=== PATIENT | female | born 1975 | race Caucasian/White ===

== ENCOUNTER 2018-12-25 04:35 | Inpatient (IN) | payer MEDICAID ==
[2018-12-25] MEDS ORDERED: Albuterol/Ipratropium 3.0-0.5 MG/3 ML Neb Soln NEB ONE (04:42)
[2018-12-25] MEDS ORDERED: LORazepam 2 MG/ML SDV IVPUSH ONE ×2 (04:43→06:46)
[2018-12-25] MEDS ORDERED: Promethazine 25 MG in Sodium Chloride 0.9% 50 ML IV ONE (04:43)
[2018-12-25] MEDS: Dextrose 5%-0.9% NaCl 1,000 ML IV SCH ×2 (04:54→10:48)
--- NOTE | 2018-12-25 04:54 | EDM.PDOC ---
ED HPI GENERAL MEDICAL PROBLEM - General Chief Complaint: Respiratory Problem Stated Complaint: [facility] Time Seen by Provider: 12/25/18 04:46 Source of Information: Reports: EMS History Limitations: Reports: Altered Mental Status, Respiratory Distress ( Patient presents with severe respiratory distress. O2 sats 85-89% on room air.) , Other (She is not able to speak more than 1 or 2 word sentences due to respiratory distress. He is agitated and almost exhibiting choreoathetoid movements of her upper extremities. He is cachectic in appearance and by history apparently has relapsed with use of methamphetamines. She has been picking at her skin particularly mid forehead with wounds that appear to be at least a week or more old.) - History of Present Illness INITIAL COMMENTS - FREE TEXT/NARRATIVE: 43-year-old female brought to the ED by [facility].. Apparently the patient summoned the paramedics and the police attended as well. Apparently the please attend her residence quite often due to problems related to chronic methamphetamine abuse. Apparently she has recently relapsed into recurrent methamphetamine use. She appears cachectic and unkept with obvious picking of her skin in multiple areas around her face and forehead and upper arms. She uses methamphetamine intravenously. She states that she his alpha-1 antitrypsin deficiency and severe COPD with wheezing. He is on multiple inhalers. Per medics gave her albuterol treatment en route to the hospital which seemed to help somewhat and also the use of CPAP machine en route to the hospital which helped her breathing. Apparently patient is on oxygen 1 L per nasal cannula on a when necessary basis. Onset: Unknown/Unsure Duration: Chronic (Chronic COPD with wheezing.), Other (History of chronic methamphetamine abuse.) Location: Reports: Chest (Dyspnea.) Quality: Reports: Other Severity: Moderate (Shortness of breath dyspnea and cough.) Improves with: Reports: Other Worsens with: Reports: Movement Context: Reports: Other (Acute exacerbation of COPD). Denies: Activity, Exercise, Lifting, Sick Contact, Trauma Associated Symptoms: Reports: Confusion, Chest Pain, Cough, Loss of Appetite, Rash (From coughing), Shortness of Breath. Denies: cough w sputum, Diaphoresis , Fever/Chills, Headaches, Nausea/Vomiting ( from picking), Seizure, Syncope, Weakness Treatments EXHIBITS COORDINATOR: Reports: Other (see below) (Only albuterolthat the paramedics gave.) Generalized Pain Score (Numeric/FACES): 10 - Related Data Allergies Allergy/AdvReac Type Severity Reaction Status Date / Time No Known Allergies Allergy Verified 12/25/18 04:47 Home Meds: Home Meds Budesonide/Formoterol Fumarate [Symbicort 160-4.5 Mcg Inhaler] 2 puff INH BID [History] hydrOXYzine HCl [Atarax] 25 mg PO BID 09/21/17 [History] Albuterol Sulfate [Proair Hfa] 2 puff INH QID PRN 12/25/18 [History] Doxycycline Monohydrate 100 mg PO BID 12/25/18 [History] Ipratropium/Albuterol Sulfate [Iprat-Albut 0.5-3(2.5) mg/3 ml] 1 vial INH Q4H PRN 12/25/18 [History] Tiotropium [Spiriva HandiHaler] 1 cap INH DAILY 12/25/18 [History] Venlafaxine HCl [Venlafaxine ER] 75 mg PO DAILY 12/25/18 [History] hydrOXYzine pamoate [Hydroxyzine Pamoate] 50 mg PO Q6H PRN 12/25/18 [History] Past Medical History - Past Health History Medical/Surgical History: Denies Medical/Surgical History HEENT History: Reports: None Cardiovascular History: Reports: None Respiratory History: Reports: Asthma, COPD, Other (See Below) Other Respiratory History: Emphysema Gastrointestinal History: Reports: None Genitourinary History: Reports: None BUSINESS SYSTEMS ADVISOR History: Reports: None Musculoskeletal History: Reports: Fibromyalgia Neurological History: Reports: Concussion Psychiatric History: Reports: ADHD, Anxiety, Depression Endocrine/Metabolic History: Reports: None Hematologic History: Reports: Other (See Below) Other Hematologic History: Alpha 1 gene deficiency, diagnosed one year ago. Immunologic History: Reports: None Oncologic (Cancer) History: Reports: None Dermatologic History: Reports: None - Infectious Disease History Infectious Disease History: Reports: Chicken Pox, MRSA - Past Surgical History Head Surgeries/Procedures: Reports: None HEENT Surgical History: Reports: Oral Surgery GI Surgical History: Reports: Appendectomy Endocrine Surgical History: Reports: None Neurological Surgical History: Reports: None Musculoskeletal Surgical History: Reports: None Dermatological Surgical History: Reports: None Social & Family History - Family History Family Medical History: Noncontributory Respiratory: Reports: Asthma, COPD Other Respiratory Family Hisory: parents - Caffeine Use Caffeine Use: Reports: Coffee, Soda - Living Situation & Occupation Living situation: Reports: Single Occupation: Unemployed ED ROS GENERAL - Review of Systems Review Of Systems: See Below Constitutional: Reports: Fatigue, Decreased Appetite, Weight Loss. Denies: Fever, Chills, Malaise, Weakness HEENT: Reports: No Symptoms Respiratory: Reports: Shortness of Breath, Wheezing, Cough. Denies: Pleuritic Chest Pain, Sputum, Hemoptysis, Other Cardiovascular: Reports: Chest Pain, Dyspnea on Exertion (From coughing so much on a). Denies: No Symptoms, Blood Pressure Problem, Claudication, Edema, Lightheadedness, Orthopnea Endocrine: Reports: Fatigue GI/Abdominal: Reports: Decreased Appetite : Reports: No Symptoms Musculoskeletal: Reports: Back Pain Skin: Reports: Dryness Neurological: Reports: Difficulty Walking Psychiatric: Reports: Agitation, Anxiety, Mood Lability Hematologic/Lymphatic: Reports: No Symptoms Immunologic: Reports: No Symptoms ED EXAM, GENERAL - Physical Exam Exam: See Below Exam Limited By: Respiratory Distress (Severe respiratory distress. Talking only 1-2 word sentences.) General Appearance: Alert, Anxious, Severe Distress, Other (Appears to be intoxicated with exaggerated movements of her limbs.) Eye Exam: Bilateral Eye: Normal Inspection, PERRL Throat/Mouth: Other (Views oropharyngeal erythema with slight swelling of the uvula compatible with recurrent coughing and gagging. Tongue is dry and coated) Head: Atraumatic, Normocephalic, Facial Tenderness (She has been picking at her face chin and particularly lesion mid forehead compatible with chronic methamphetamine abuse.), Other (Marcos signs of head trauma.) Neck: Normal Inspection, Supple, Non-Tender, Full Range of Motion. No: Lymphadenopathy (L), Lymphadenopathy (R) Respiratory/Chest: Respiratory Distress, Wheezing (Severe respiratory distress speaking only in 1-2 word sentences. Diffuse wheezing throughout all lung ch.). No: Lungs Clear, Normal Breath Sounds Cardiovascular: Normal Peripheral Pulses, Regular Rate, Rhythm, No Edema, No Murmur, No Rub, Tachycardia (Tachycardia 1 12/m at rest.) Peripheral Pulses: 3+: Posterior Tibial (L), Posterior Tibial (R), Dorsalis Pedis (L), Dorsalis Pedis (R) GI/Abdominal: Normal Bowel Sounds, Soft, Non-Tender, No Organomegaly, Distended (Slightly tympanitic to percussion distended upper abdomen compound some degree of aerophagia.) Back Exam: Full Range of Motion, Other ([place] in appearance with all ribs and spinous processes easily visible.). No: CVA Tenderness (L), CVA Tenderness (R) Extremities: Other (She has evidence of needle sticks in both antecubital fossa is compatible with IV drug use.) Neurological: Alert Psychiatric: Anxious (Severely anxious and somewhat agitated.) Skin Exam: Warm, Dry, Intact, Normal Color, Rash (He has a rash forehead face Chin upper extremities from "picking"), Other EKG INTERPRETATION EKG Date: 12/25/18 Time: 04:54 Rhythm: NSR Rate (Beats/Min): 88 [place]: Normal P-Wave: Enlarged (Right atrial hypertrophy.) QRS: Other (Decreased voltage limb and precordial leads. Q waves V1 and V2 consider old anteroseptal myocardial infarction. Q waves in aVL nonspecific) ST-T: Other (T-wave flattening one in aVL and V6 nonspecific findings) QT: Normal EKG Interpretation Comments: Abnormal ECG Course - Vital Signs Last Recorded V/S: Last Vital Signs Temp 37.0 C 12/25/18 14:48 Pulse 81 12/25/18 14:48 Resp 16 12/25/18 14:48 BP 128/79 12/25/18 14:48 Pulse Ox 95 12/25/18 18:00 - Orders/Labs/Meds Orders: Active Orders 24 hr Category Date Time Status Oxygen Therapy [RC] ASDIRECTED Care 12/25/18 04:46 Active Medication Orders Acetaminophen (Tylenol) 650 mg PO Q4H PRN PRN Reason: Pain (Mild 1-3)/fever Albuterol (Proventil Neb Soln) 2.5 mg NEB Q4HRRT PRN PRN Reason: Dyspnea Albuterol/Ipratropium (Duoneb 3.0-0.5 Mg/3 Ml) 3 ml NEB QIDRT RICHARD Bacitracin (Bacitracin Oint) 0 gm TOP TID RICHARD Last Admin: 12/25/18 15:41 Dose: 1 applic Bisacodyl (Dulcolax) 5 mg PO DAILY PRN PRN Reason: Constipation Diphenhydramine HCl (Benadryl) 25 mg PO Q4H PRN PRN Reason: Itching Docusate Sodium (Colace) 100 mg PO BID PRN PRN Reason: Constipation Enoxaparin Sodium (Lovenox) 40 mg SUBCUT DAILY [facility] Last Admin: 12/25/18 17:18 Dose: 40 mg Lactated Ringer's (Ringers, Lactated) 1,000 mls @ 125 mls/hr IV ASDIRECTED [facility] Last Admin: 12/25/18 14:51 Dose: 125 mls/hr Lorazepam (Ativan) 1 mg IV Q6H PRN PRN Reason: Anxiety Methylprednisolone Sodium Succinate (Solu-Medrol) 40 mg IVPUSH Q6H [facility] Last Admin: 12/25/18 15:41 Dose: 40 mg Admin: 12/25/18 10:27 Dose: 40 mg Ondansetron HCl (Zofran Odt) 4 mg PO Q6H PRN PRN Reason: nausea, able to take PO Vancomycin HCl (Pharmacy To Dose - Vancomycin) 1 dose .XX ASDIRECTED [facility] Venlafaxine HCl (Effexor Xr) 75 mg PO DAILY [facility] Last Admin: 12/25/18 10:26 Dose: 75 mg Labs: Laboratory Tests 12/25/18 12/25/18 12/25/18 Range/Units 05:19 05:19 05:19 WBC 6.60 (3.98-10.04) K/mm3 RBC 4.47 (3.98-5.22) M/mm3 Hgb 13.5 (11.2-15.7) gm/L Hct 40.1 (34.1-44.9) % MCV 89.7 (79.4-94.8) fl MCH 30.2 (25.6-32.2) pg MCHC 33.7 (32.2-35.5) g/dl RDW Std Deviation 43.7 (36.4-46.3) fL Plt Count 351 (182-369) K/mm3 MPV 8.2 L (9.4-12.3) fl Neutrophils % (Manual) 57 (40-60) % Band Neutrophils % 0 (0-10) % Lymphocytes % (Manual) 29 (20-40) % Atypical Lymphs % 0 % Monocytes % (Manual) 12 H (2-10) % Eosinophils % (Manual) 2 (0.7-5.8) % Basophils % (Manual) 0 L (0.1-1.2) Platelet Estimate Adequate RBC Morph Comment Normal Puncture Site ABG pH (7.35-7.45) ABG pCO2 (35.0-45.0) mmHg ABG pO2 (80.0-100.0) mmHg ABG HCO3 (22.0-26.0) meq/L ABG O2 Saturation (96.0-97.0) % ABG Base Excess (-2-2.0) Ruiz Test A-a Gradient mmHg O2 Delivery Device Oxygen Flow Rate Sodium 137 (136-145) mEq/L Potassium 3.5 (3.5-5.1) mEq/L Chloride 101 (98-107) mEq/L Carbon Dioxide 24 (21-32) mEq/L Anion Gap 15.5 H (5-15) BUN 12 (7-18) mg/dL Creatinine 0.7 (0.55-1.02) mg/dL Est Cr Clr Drug Dosing 86.60 mL/min Estimated GFR (MDRD) > 60 (>60) mL/min BUN/Creatinine Ratio 17.1 (14-18) Glucose 118 H (74-106) mg/dL Calcium 8.6 (8.5-10.1) mg/dL Magnesium 1.9 (1.8-2.4) mg/dl Total Bilirubin 0.5 (0.2-1.0) mg/dL AST 34 (15-37) U/L ALT 80 H (14-59) U/L Alkaline Phosphatase 90 (46-116) U/L Creatine Kinase (26-192) U/L CK-MB (CK-2) 7.8 H (0-3.6) ng/ml Troponin I < 0.017 (0.00-0.056) ng/mL C-Reactive Protein 1.8 H* (<1.0) mg/dL NT-Pro-B Natriuret Pep 53 (0-125) pg/mL Total Protein 6.9 (6.4-8.2) g/dl Albumin 3.8 (3.4-5.0) g/dl Globulin 3.1 gm/dL Albumin/Globulin Ratio 1.2 (1-2) HCG, Qual Negative (NEGATIVE) Ethyl Alcohol (0.00) gm% Hepatitis C Antibody (NEGATIVE) HIV-1 Ab Rapid Screen (NEGATIVE) 12/25/18 12/25/18 12/25/18 Range/Units 05:19 05:19 05:20 WBC (3.98-10.04) K/mm3 RBC (3.98-5.22) M/mm3 Hgb (11.2-15.7) gm/L Hct (34.1-44.9) % MCV (79.4-94.8) fl MCH (25.6-32.2) pg MCHC (32.2-35.5) g/dl RDW Std Deviation (36.4-46.3) fL Plt Count (182-369) K/mm3 MPV (9.4-12.3) fl Neutrophils % (Manual) (40-60) % Band Neutrophils % (0-10) % Lymphocytes % (Manual) (20-40) % Atypical Lymphs % % Monocytes % (Manual) (2-10) % Eosinophils % (Manual) (0.7-5.8) % Basophils % (Manual) (0.1-1.2) Platelet Estimate RBC Morph Comment Puncture Site Lt radial ABG pH 7.34 L (7.35-7.45) ABG pCO2 44.5 (35.0-45.0) mmHg ABG pO2 68.0 L (80.0-100.0) mmHg ABG HCO3 23.1 (22.0-26.0) meq/L ABG O2 Saturation 92.0 L (96.0-97.0) % ABG Base Excess -2.3 L (-2-2.0) Ruiz Test Positive A-a Gradient 81 mmHg O2 Delivery Device Nasal cannula Oxygen Flow Rate 3.0 Sodium (136-145) mEq/L Potassium (3.5-5.1) mEq/L Chloride (98-107) mEq/L Carbon Dioxide (21-32) mEq/L Anion Gap (5-15) BUN (7-18) mg/dL Creatinine (0.55-1.02) mg/dL Est Cr Clr Drug Dosing mL/min Estimated GFR (MDRD) (>60) mL/min BUN/Creatinine Ratio (14-18) Glucose (74-106) mg/dL Calcium (8.5-10.1) mg/dL Magnesium (1.8-2.4) mg/dl Total Bilirubin (0.2-1.0) mg/dL AST (15-37) U/L ALT (14-59) U/L Alkaline Phosphatase (46-116) U/L Creatine Kinase 154 (26-192) U/L CK-MB (CK-2) (0-3.6) ng/ml Troponin I (0.00-0.056) ng/mL C-Reactive Protein (<1.0) mg/dL NT-Pro-B Natriuret Pep (0-125) pg/mL Total Protein (6.4-8.2) g/dl Albumin (3.4-5.0) g/dl Globulin gm/dL Albumin/Globulin Ratio (1-2) HCG, Qual (NEGATIVE) Ethyl Alcohol 0.00 (0.00) gm% Hepatitis C Antibody Positive H (NEGATIVE) HIV-1 Ab Rapid Screen Negative (NEGATIVE) Meds: Medications Generic Name Dose Route Start Last Admin Trade Name Freq PRN Reason Stop Dose Admin Acetaminophen 650 mg 12/25/18 09:31 Tylenol PO Q4H PRN Pain (Mild 1-3)/fever Albuterol 2.5 mg 12/25/18 09:23 Proventil Neb Soln NEB Q4HRRT PRN Dyspnea Albuterol/Ipratropium 3 ml 12/25/18 21:00 Duoneb 3.0-0.5 Mg/3 Ml NEB QIDRT RICHARD Bacitracin 0 gm 12/25/18 15:00 12/25/18 15:41 Bacitracin Oint TOP 1 applic TID RICHARD Administration Bisacodyl 5 mg 12/25/18 09:31 Dulcolax PO DAILY PRN Constipation Diphenhydramine HCl 25 mg 12/25/18 09:40 Benadryl PO Q4H PRN Itching Docusate Sodium 100 mg 12/25/18 09:31 Colace PO BID PRN Constipation Enoxaparin Sodium 40 mg 12/25/18 16:30 12/25/18 17:18 Lovenox SUBCUT 40 mg DAILY RICHARD Administration Lactated Ringer's 1,000 mls @ 125 mls/hr 12/25/18 12:50 12/25/18 14:51 Ringers, Lactated IV 125 mls/hr ASDIRECTED RICHARD Administration Lorazepam 1 mg 12/25/18 09:31 Ativan IV Q6H PRN Anxiety Methylprednisolone Sodium Succinate 40 mg 12/25/18 09:30 12/25/18 15:41 Solu-Medrol IVPUSH 40 mg Q6H RICHARD Administration Ondansetron HCl 4 mg 12/25/18 09:31 Zofran Odt PO Q6H PRN nausea, able to take PO Vancomycin HCl 1 dose 12/25/18 19:00 Pharmacy To Dose - Vancomycin .XX ASDIRECTED RICHARD Venlafaxine HCl 75 mg 12/25/18 09:00 12/25/18 10:26 Effexor Xr PO 75 mg DAILY RICHARD Administration Discontinued Medications Generic Name Dose Route Start Last Admin Trade Name Freq PRN Reason Stop Dose Admin Albuterol/Ipratropium 3 ml 12/25/18 04:42 12/25/18 04:58 Duoneb 3.0-0.5 Mg/3 Ml NEB 12/25/18 04:43 3 ml ONETIME ONE Administration Albuterol/Ipratropium 3 ml 12/25/18 10:00 Duoneb 3.0-0.5 Mg/3 Ml NEB Q4HRRT RICHARD Albuterol/Ipratropium 3 ml 12/25/18 09:40 12/25/18 18:00 Duoneb 3.0-0.5 Mg/3 Ml NEB 3 ml Q4HRRT RICHARD Administration Dextrose/Sodium Chloride 1,000 mls @ 250 mls/hr 12/25/18 04:45 12/25/18 10:48 Dextrose 5%-Normal Saline IV 12/25/18 12:45 250 mls/hr ASDIRECTED RICHARD Administration Promethazine HCl 25 mg/ Sodium 51 mls @ 100 mls/hr 12/25/18 04:43 12/25/18 05 :11 Chloride IV 12/25/18 05:13 100 mls/hr ONETIME ONE Administration Lorazepam 1 mg 12/25/18 04:43 12/25/18 04:55 Ativan IVPUSH 12/25/18 04:44 1 mg ONETIME ONE Administration Lorazepam 1 mg 12/25/18 06:46 12/25/18 06:47 Ativan IVPUSH 12/25/18 06:47 1 mg ONETIME ONE Administration Lorazepam Confirm 12/25/18 06:45 12/25/18 06:48 Ativan Administered 12/25/18 06:46 Not Given Dose 2 mg .ROUTE .[facility] - Radiology Interpretation Free Text/Narrative:: 43-year-old female who is known to be a chronic methamphetamine abuser primarily by IV drug use. Presents to the ED per [facility]. She summoned the embolus due to increased shortness of breath and dyspnea. 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 She appears to be moderately intoxicated likely from methamphetamines. Somewhat bizarre choreoathetoid movements of her extremities and rapid speech. He presents in quite significant respiratory distress with wheezing throughout all lung hc and O2 sats of 85% on room air. Son oxygen at 3 L/m by nasal cannula and given DuoNeb immediately. So relieved a good portion of her respiratory distress. So given Ativan 1 mg IV and we'll give her Phenergan 25 mg IV as she continues to dry heave and wretch with coughing. Plan routine labs urine drug screen one view chest x-ray to be done. ECG as well. ABGs as well. - Re-Assessments/Exams Free Text/Narrative Re-Assessment/Exam: 12/25/18 05:15: Audible chest x-ray reveals hyperinflated lung ch with no pneumothorax or pulmonary infiltrates evident. 12/25/18 06:04 Total white count is 6.60 differential pending. Hemoglobin 13.5 with hematocrit of 40.1. Platelet count is 351,000. ABGs revealed a pH of 7.34 with a PCO2 of 44.5 and a PaO2 of 68.0. Bicarbonate was 23.1 saturations 92% this was done on 3 L/m nasal cannula. Sodium 137 potassium of 3.5. Chloride 101 with a bicarbonate of 24. And a gap slightly elevated at 15.5. BUN of 12 with a running of 0.7. GFR is greater than 60. Pulse 118 calcium 8.6 magnesium 1.9. Bilirubin is 0.5 AST is 34 ELT is 80. Alkaline phosphatase is 90. CK-MB is elevated at 7.8 but troponin I is less than 0.017. C-reactive protein is 1.8. Total protein is 6.9. Patient is been able to fall asleep. Heart rate is 90 O2 sats 100% .Blood pressure 102/70. Patient will help further labs ordered with hep C screen. HIV screen due to high risk behaviors with IV drug use. Total CPK will also be ordered. Blood alcohol level as well. 12/25/18 06:17 on reexamination she is sleeping peacefully and has good air entry to anterior lung ch. No wheezing is appreciated at this time and as mentioned sats are 100% on 3 L. 12/25/18 06:33 Differential on the white count is 57% neutrophils and no band cells. Serum hCG was negative blood alcohol was 0.00. C-reactive protein is 1.8 12/25/18 06:47 lesion has aroused and is exhibiting her bizarre choreoathetoid- like movements. Still suspect she may be under the influence of methamphetamines but we have yet to obtain a urinalysis for drug testing. Plan Will repeat Ativan 1 mg IV as this seemed to provide adequate sedation. We'll then catheterized to obtain a urinalysis and urine drug screen. I did speak with Dr. Hayden -application systems administrator hospitalist and he has accepted care of this patient. Plan was to place her in the med surgery floor per observation status treatment of her COPD. I have not given her any steroids at this point time until I can determine exactly what she has in her urinalysis. Patient was HIV negative but hepatitis C positive. Urine drug screen was positive for amphetamine/ methamphetamines. Departure - Departure Time of Disposition: 06:55 Disposition: Refer to Observation Condition: Fair Clinical Impression: Acute exacerbation of chronic obstructive pulmonary disease (COPD), Methamphetamine abuse - Discharge Information *PRESCRIPTION DRUG MONITORING PROGRAM REVIEWED*: Not Applicable *COPY OF PRESCRIPTION DRUG MONITORING REPORT IN PATIENT SHER: Not Applicable - My Orders Last 24 Hours: My Active Orders 12/25/18 04:46 Oxygen Therapy [RC] ASDIRECTED - Assessment/Plan Last 24 Hours: My Active Orders 12/25/18 04:46 Oxygen Therapy [RC] ASDIRECTED
[2018-12-25] MEDS ORDERED: LORazepam 2 MG/ML SDV ONE (06:45)
--- NOTE | 2018-12-25 08:16 | PCM.HP ---
H&P History of Present Illness - General Date of Service: 12/25/18 Admit Problem/Dx: Admission Diagnosis/Problem Admission Diagnosis/Problem COPD, Severe chronic obstructive pulmonary disease Source of Information: Patient, Old Records, Provider, RN Notes Reviewed History Limitations: Reports: Respiratory Distress Generalized Pain Score (Numeric/FACES): 10 - Related Data Allergies/Adverse Reactions: Allergies Allergy/AdvReac Type Severity Reaction Status Date / Time No Known Allergies Allergy Verified 12/25/18 04:47 Home Medications: Home Meds Budesonide/Formoterol Fumarate [Symbicort 160-4.5 Mcg Inhaler] 1 puff INH DAILY 11/18/16 [History] DULoxetine [Cymbalta] 60 mg PO DAILY 11/18/16 [History] Ipratropium/Albuterol Sulfate [Combivent Respimat 20-100 Mcg] 1 unit INH QID PRN 11/18/16 [History] hydrOXYzine HCl [Atarax] 25 mg PO BID 09/21/17 [History] Albuterol Sulfate [Proventil Hfa] 1 puff INH Q4H PRN #1 hfa.aer.[email or web address] 09/23/17 [Rx] Fluticasone/Vilanterol [Breo Ellipta 200-25 Mcg INH] 2 puff INH DAILY 06/28/18 [ History] Past Medical History - Past Health History Medical/Surgical History: Denies Medical/Surgical History HEENT History: Reports: None Cardiovascular History: Reports: None Respiratory History: Reports: Asthma, COPD, Other (See Below) Other Respiratory History: Emphysema Gastrointestinal History: Reports: None Genitourinary History: Reports: None [employer]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 Immunologic History: Reports: None Oncologic (Cancer) History: Reports: None Dermatologic History: Reports: None - Infectious Disease History Infectious Disease History: Reports: Chicken Pox, MRSA - Past Surgical History Head Surgeries/Procedures: Reports: None HEENT Surgical History: Reports: Oral Surgery GI Surgical History: Reports: Appendectomy Endocrine Surgical History: Reports: None Neurological Surgical History: Reports: None Musculoskeletal Surgical History: Reports: None Dermatological Surgical History: Reports: None Social & Family History - Family History Family Medical History: Noncontributory Respiratory: Reports: Asthma, COPD Other Respiratory Family Hisory: parents - Caffeine Use Caffeine Use: Reports: Coffee, Soda - Living Situation & Occupation Living situation: Reports: Single Occupation: Unemployed H&P Review of Systems - Review of Systems: Review Of Systems: See Below Exam - Exam Exam: See Below - Vital Signs Vital Signs: Last Vital Signs Temp 37.1 C 12/25/18 07:15 Pulse 82 12/25/18 07:15 Resp 20 12/25/18 07:15 BP 111/80 12/25/18 07:15 Pulse Ox 97 12/25/18 07:15 Weight: 54.431 kg - Patient Data Lab Results Last 24 hrs: Laboratory Results - last 24 hr 12/25/18 12/25/18 12/25/18 Range/Units 05:19 05:19 05:19 WBC 6.60 (3.98-10.04) K/mm3 RBC 4.47 (3.98-5.22) M/mm3 Hgb 13.5 (11.2-15.7) gm/L Hct 40.1 (34.1-44.9) % MCV 89.7 (79.4-94.8) fl MCH 30.2 (25.6-32.2) pg MCHC 33.7 (32.2-35.5) g/dl RDW Std Deviation 43.7 (36.4-46.3) fL Plt Count 351 (182-369) K/mm3 MPV 8.2 L (9.4-12.3) fl Neutrophils % (Manual) 57 (40-60) % Band Neutrophils % 0 (0-10) % Lymphocytes % (Manual) 29 (20-40) % Atypical Lymphs % 0 % Monocytes % (Manual) 12 H (2-10) % Eosinophils % (Manual) 2 (0.7-5.8) % Basophils % (Manual) 0 L (0.1-1.2) Platelet Estimate Adequate RBC Morph Comment Normal Puncture Site ABG pH (7.35-7.45) ABG pCO2 (35.0-45.0) mmHg ABG pO2 (80.0-100.0) mmHg ABG HCO3 (22.0-26.0) meq/L ABG O2 Saturation (96.0-97.0) % ABG Base Excess (-2-2.0) Ruiz Test A-a Gradient mmHg O2 Delivery Device Oxygen Flow Rate Sodium 137 (136-145) mEq/L Potassium 3.5 (3.5-5.1) mEq/L Chloride 101 (98-107) mEq/L Carbon Dioxide 24 (21-32) mEq/L Anion Gap 15.5 H (5-15) BUN 12 (7-18) mg/dL Creatinine 0.7 (0.55-1.02) mg/dL Est Cr Clr Drug Dosing 86.60 mL/min Estimated GFR (MDRD) > 60 (>60) mL/min BUN/Creatinine Ratio 17.1 (14-18) Glucose 118 H (74-106) mg/dL Calcium 8.6 (8.5-10.1) mg/dL Magnesium 1.9 (1.8-2.4) mg/dl Total Bilirubin 0.5 (0.2-1.0) mg/dL AST 34 (15-37) U/L ALT 80 H (14-59) U/L Alkaline Phosphatase 90 (46-116) U/L Creatine Kinase (26-192) U/L CK-MB (CK-2) 7.8 H (0-3.6) ng/ml Troponin I < 0.017 (0.00-0.056) ng/mL C-Reactive Protein 1.8 H* (<1.0) mg/dL NT-Pro-B Natriuret Pep 53 (0-125) pg/mL Total Protein 6.9 (6.4-8.2) g/dl Albumin 3.8 (3.4-5.0) g/dl Globulin 3.1 gm/dL Albumin/Globulin Ratio 1.2 (1-2) HCG, Qual Negative (NEGATIVE) Urine Color (Yellow) Urine Appearance (Clear) Urine pH (5.0-8.0) Ur Specific [place] (1.005-1.030) Urine Protein (Negative) Urine Glucose (UA) (Negative) Urine Ketones (Negative) Urine Occult Blood (Negative) Urine Nitrite (Negative) Urine Bilirubin (Negative) Urine Urobilinogen (0.2-1.0) Ur Leukocyte Esterase (Negative) Urine RBC (0-5) /hpf Urine WBC (0-5) /hpf Ur Epithelial Cells (0-5) /hpf Urine Bacteria (FEW) /hpf Urine Mucus (FEW) /hpf Urine Opiates Screen (XCHYFG=649) Ur Buprenorphine Scrn (CUTOFF=10) Ur Oxycodone Screen (CXP7OZ=574) Urine Methadone Screen (MYYKCN=569) Ur Propoxyphene Screen (OZPGVY=180) Ur Barbiturates Screen (NGQSDF=512) Ur Tricyclics Screen (OPHCHZ=012) Ur Phencyclidine Scrn (CUTOFF=25) Ur Amphetamine Screen (MSNQWI=385) U Methamphetamines Scrn (CRTCHV=891) U Benzodiazepines Scrn (BKYPVI=316) U Cocaine Metab Screen (FZBZRP=578) U Marijuana (THC) Screen (CUTOFF=50) Ethyl Alcohol (0.00) gm% Hepatitis C Antibody (NEGATIVE) HIV-1 Ab Rapid Screen (NEGATIVE) 12/25/18 12/25/18 12/25/18 Range/Units 05:19 05:19 05:20 WBC (3.98-10.04) K/mm3 RBC (3.98-5.22) M/mm3 Hgb (11.2-15.7) gm/L Hct (34.1-44.9) % MCV (79.4-94.8) fl MCH (25.6-32.2) pg MCHC (32.2-35.5) g/dl RDW Std Deviation (36.4-46.3) fL Plt Count (182-369) K/mm3 MPV (9.4-12.3) fl Neutrophils % (Manual) (40-60) % Band Neutrophils % (0-10) % Lymphocytes % (Manual) (20-40) % Atypical Lymphs % % Monocytes % (Manual) (2-10) % Eosinophils % (Manual) (0.7-5.8) % Basophils % (Manual) (0.1-1.2) Platelet Estimate RBC Morph Comment Puncture Site Lt radial ABG pH 7.34 L (7.35-7.45) ABG pCO2 44.5 (35.0-45.0) mmHg ABG pO2 68.0 L (80.0-100.0) mmHg ABG HCO3 23.1 (22.0-26.0) meq/L ABG O2 Saturation 92.0 L (96.0-97.0) % ABG Base Excess -2.3 L (-2-2.0) Ruiz Test Positive A-a Gradient 81 mmHg O2 Delivery Device Nasal cannula Oxygen Flow Rate 3.0 Sodium (136-145) mEq/L Potassium (3.5-5.1) mEq/L Chloride (98-107) mEq/L Carbon Dioxide (21-32) mEq/L Anion Gap (5-15) BUN (7-18) mg/dL Creatinine (0.55-1.02) mg/dL Est Cr Clr Drug Dosing mL/min Estimated GFR (MDRD) (>60) mL/min BUN/Creatinine Ratio (14-18) Glucose (74-106) mg/dL Calcium (8.5-10.1) mg/dL Magnesium (1.8-2.4) mg/dl Total Bilirubin (0.2-1.0) mg/dL AST (15-37) U/L ALT (14-59) U/L Alkaline Phosphatase (46-116) U/L Creatine Kinase 154 (26-192) U/L CK-MB (CK-2) (0-3.6) ng/ml Troponin I (0.00-0.056) ng/mL C-Reactive Protein (<1.0) mg/dL NT-Pro-B Natriuret Pep (0-125) pg/mL Total Protein (6.4-8.2) g/dl Albumin (3.4-5.0) g/dl Globulin gm/dL Albumin/Globulin Ratio (1-2) HCG, Qual (NEGATIVE) Urine Color (Yellow) Urine Appearance (Clear) Urine pH (5.0-8.0) Ur Specific [place] (1.005-1.030) Urine Protein (Negative) Urine Glucose (UA) (Negative) Urine Ketones (Negative) Urine Occult Blood (Negative) Urine Nitrite (Negative) Urine Bilirubin (Negative) Urine Urobilinogen (0.2-1.0) Ur Leukocyte Esterase (Negative) Urine RBC (0-5) /hpf Urine WBC (0-5) /hpf Ur Epithelial Cells (0-5) /hpf Urine Bacteria (FEW) /hpf Urine Mucus (FEW) /hpf Urine Opiates Screen (JQVEOW=378) Ur Buprenorphine Scrn (CUTOFF=10) Ur Oxycodone Screen (VRO9CN=840) Urine Methadone Screen (VWUGAE=650) Ur Propoxyphene Screen (UUCEUT=453) Ur Barbiturates Screen (DJPFVN=691) Ur Tricyclics Screen (BBBOYO=106) Ur Phencyclidine Scrn (CUTOFF=25) Ur Amphetamine Screen (VKECGQ=266) U Methamphetamines Scrn (SCKRYZ=191) U Benzodiazepines Scrn (OISECC=687) U Cocaine Metab Screen (SRJBQW=271) U Marijuana (THC) Screen (CUTOFF=50) Ethyl Alcohol 0.00 (0.00) gm% Hepatitis C Antibody Positive H (NEGATIVE) HIV-1 Ab Rapid Screen Negative (NEGATIVE) 12/25/18 12/25/18 Range/Units 06:56 06:56 WBC (3.98-10.04) K/mm3 RBC (3.98-5.22) M/mm3 Hgb (11.2-15.7) gm/L Hct (34.1-44.9) % MCV (79.4-94.8) fl MCH (25.6-32.2) pg MCHC (32.2-35.5) g/dl RDW Std Deviation (36.4-46.3) fL Plt Count (182-369) K/mm3 MPV (9.4-12.3) fl Neutrophils % (Manual) (40-60) % Band Neutrophils % (0-10) % Lymphocytes % (Manual) (20-40) % Atypical Lymphs % % Monocytes % (Manual) (2-10) % Eosinophils % (Manual) (0.7-5.8) % Basophils % (Manual) (0.1-1.2) Platelet Estimate RBC Morph Comment Puncture Site ABG pH (7.35-7.45) ABG pCO2 (35.0-45.0) mmHg ABG pO2 (80.0-100.0) mmHg ABG HCO3 (22.0-26.0) meq/L ABG O2 Saturation (96.0-97.0) % ABG Base Excess (-2-2.0) Ruiz Test A-a Gradient mmHg O2 Delivery Device Oxygen Flow Rate Sodium (136-145) mEq/L Potassium (3.5-5.1) mEq/L Chloride (98-107) mEq/L Carbon Dioxide (21-32) mEq/L Anion Gap (5-15) BUN (7-18) mg/dL Creatinine (0.55-1.02) mg/dL Est Cr Clr Drug Dosing mL/min Estimated GFR (MDRD) (>60) mL/min BUN/Creatinine Ratio (14-18) Glucose (74-106) mg/dL Calcium (8.5-10.1) mg/dL Magnesium (1.8-2.4) mg/dl Total Bilirubin (0.2-1.0) mg/dL AST (15-37) U/L ALT (14-59) U/L Alkaline Phosphatase (46-116) U/L Creatine Kinase (26-192) U/L CK-MB (CK-2) (0-3.6) ng/ml Troponin I (0.00-0.056) ng/mL C-Reactive Protein (<1.0) mg/dL NT-Pro-B Natriuret Pep (0-125) pg/mL Total Protein (6.4-8.2) g/dl Albumin (3.4-5.0) g/dl Globulin gm/dL Albumin/Globulin Ratio (1-2) HCG, Qual (NEGATIVE) Urine Color Yellow (Yellow) Urine Appearance Clear (Clear) Urine pH 5.5 (5.0-8.0) Ur Specific [place] 1.010 (1.005-1.030) Urine Protein Negative (Negative) Urine Glucose (UA) Negative (Negative) Urine Ketones Negative (Negative) Urine Occult Blood Negative (Negative) Urine Nitrite Negative (Negative) Urine Bilirubin Negative (Negative) Urine Urobilinogen 0.2 (0.2-1.0) Ur Leukocyte Esterase Negative (Negative) Urine RBC 0-5 (0-5) /hpf Urine WBC 0-5 (0-5) /hpf Ur Epithelial Cells 0-5 (0-5) /hpf Urine Bacteria Few (FEW) /hpf Urine Mucus Few (FEW) /hpf Urine Opiates Screen Negative (ALZCFN=844) Ur Buprenorphine Scrn Negative (CUTOFF=10) Ur Oxycodone Screen Negative (RRY2FR=209) Urine Methadone Screen Negative (UEYPDQ=251) Ur Propoxyphene Screen Negative (NFDAZA=657) Ur Barbiturates Screen Negative (GMTUDO=310) Ur Tricyclics Screen Negative (DATDBQ=934) Ur Phencyclidine Scrn Negative (CUTOFF=25) Ur Amphetamine Screen Presumptive positive H (YBJLJT=797) U Methamphetamines Scrn Presumptive positive H (JHHNTL=240) U Benzodiazepines Scrn Negative (VAGCXM=246) U Cocaine Metab Screen Negative (JPJYVW=262) U Marijuana (THC) Screen Negative (CUTOFF=50) Ethyl Alcohol (0.00) gm% Hepatitis C Antibody (NEGATIVE) HIV-1 Ab Rapid Screen (NEGATIVE) Result Diagrams: 12/25/18 05:19 12/25/18 05:19 Problem List Initiated/Reviewed/Updated: Yes Orders Last 24hrs: Active Orders 24 hr Category Date Time Status Admission Status [Patient Status] [ADT] Routine ADT 12/25/18 06:48 Active EKG Documentation Completion [RC] STAT Care 12/25/18 04:44 Active Oxygen Therapy [RC] ASDIRECTED Care 12/25/18 04:46 Active RT Aerosol Therapy [RC] ASDIRECTED Care 12/25/18 04:43 Active Chest 1V Frontal [CR] Stat Exams 12/25/18 04:43 Taken Dextrose 5%-0.9% NaCl [Dextrose 5%-Normal Saline] 1,000 Med 12/25/18 04:45 Active ml IV ASDIRECTED Medication Orders Dextrose/Sodium Chloride (Dextrose 5%-Normal Saline) 1,000 mls @ 250 mls/hr IV ASDIRECTED RICHARD Last Admin: 12/25/18 04:54 Dose: 250 mls/hr
--- NOTE | 2018-12-25 08:54 | PCM.SN ---
- Free Text/Narrative Note: Dr. Arcos offered to take her this morning. So, patient will under the services of the other team. Will call registration to let them know about the changes.
[2018-12-25] MEDS ORDERED: Docusate Sodium 100 MG Cap PO PRN (09:31)
[2018-12-25] MEDS ORDERED: Acetaminophen 325 MG Tab PO PRN (09:31)
[2018-12-25] MEDS ORDERED: Ondansetron 4 MG Tab.DIS PO PRN (09:31)
[2018-12-25] MEDS ORDERED: Bisacodyl 5 MG Tab PO PRN (09:31)
[2018-12-25] MEDS ORDERED: diphenhydrAMINE 25 MG Cap PO PRN (09:40)
[2018-12-25] MEDS: Albuterol/Ipratropium 3.0-0.5 MG/3 ML Neb Soln NEB SCH ×5 (09:47→20:45)
[2018-12-25] MEDS ORDERED: Albuterol/Ipratropium 3.0-0.5 MG/3 ML Neb Soln NEB SCH (10:00)
--- NOTE | 2018-12-25 10:02 | PCM.HP ---
H&P History of Present Illness - General Date of Service: 12/25/18 Admit Problem/Dx: Admission Diagnosis/Problem Admission Diagnosis/Problem COPD, Severe chronic obstructive pulmonary disease - History of Present Illness Initial Comments - Free Text/Narative: 43-year-old female admitted through the emergency room after being brought in by [facility]. History mainly obtained through emergency room records since she was given lorazepam in the emergency room for sedation. Patient called the [facility] ambulance service secondary to difficulty breathing. Patient has a history of alpha-1 antitrypsin deficiency, but continues to smoke. She has severe COPD and is on triple therapy at home. In the ambulance patient was given an albuterol treatment and use of a CPAP machine in route to the hospital. Patient exhibited respiratory distress on arrival and was only able to speak 1 or 2 word sentences. Apparently she had recently restarted methamphetamines. I did obtain from her the last use of methamphetamines was yesterday. She has begun picking at her skin particularly her mid forehead.Patient was exhibiting choreoathetoid type movements of her upper extremities per emergency room physician. Patient was on a course of doxycycline for unknown cause. She completed all but one pill of the prescription. Now patient is resting comfortably in bed. She has 2 L oxygen via nasal cannula. She had audible wheezing when speaking to her. She only answered a few questions and appeared tired. Generalized Pain Score (Numeric/FACES): 10 - Related Data Allergies/Adverse Reactions: Allergies Allergy/AdvReac Type Severity Reaction Status Date / Time No Known Allergies Allergy Verified 12/25/18 04:47 Home Medications: Home Meds Budesonide/Formoterol Fumarate [Symbicort 160-4.5 Mcg Inhaler] 2 puff INH BID [History] hydrOXYzine HCl [Atarax] 25 mg PO BID 09/21/17 [History] Albuterol Sulfate [Proair Hfa] 2 puff INH QID PRN 12/25/18 [History] Doxycycline Monohydrate 100 mg PO BID 12/25/18 [History] Ipratropium/Albuterol Sulfate [Iprat-Albut 0.5-3(2.5) mg/3 ml] 1 vial INH Q4H PRN 12/25/18 [History] Tiotropium [Spiriva HandiHaler] 1 cap INH DAILY 12/25/18 [History] Venlafaxine HCl [Venlafaxine ER] 75 mg PO DAILY 12/25/18 [History] hydrOXYzine pamoate [Hydroxyzine Pamoate] 50 mg PO Q6H PRN 12/25/18 [History] Past Medical History - Past Health History Medical/Surgical History: Denies Medical/Surgical History HEENT History: Reports: None Cardiovascular History: Reports: None Respiratory History: Reports: Asthma, COPD, Other (See Below) (Alpha-1 antitrypsin deficiency) Other Respiratory History: Emphysema Gastrointestinal History: Reports: Hepatitis (Hepatitis C) Genitourinary History: Reports: None 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 Immunologic History: Reports: None Oncologic (Cancer) History: Reports: None Dermatologic History: Reports: None - Infectious Disease History Infectious Disease History: Reports: Chicken Pox, MRSA - Past Surgical History Head Surgeries/Procedures: Reports: None HEENT Surgical History: Reports: Oral Surgery GI Surgical History: Reports: Appendectomy Endocrine Surgical History: Reports: None Neurological Surgical History: Reports: None Musculoskeletal Surgical History: Reports: None Dermatological Surgical History: Reports: None Social & Family History - Family History Family Medical History: Noncontributory Respiratory: Reports: Asthma, COPD Other Respiratory Family Hisory: parents - Tobacco Use Smoking Status *Q: Current Every Day Smoker Years of Tobacco use: 25 Packs/Tins Daily: 1 - Caffeine Use Caffeine Use: Reports: Coffee, Soda - Recreational Drug Use Recreational Drug Use: Yes Drug Use in Last 12 Months: Yes Recreational Drug Type: Reports: Amphetamines (Speed), Methamphetamine - Living Situation & Occupation Living situation: Reports: Single Occupation: Unemployed H&P Review of Systems - Review of Systems: Review Of Systems: Unable To Obtain Exam - Exam Exam: See Below - Vital Signs Vital Signs: Last Vital Signs Temp 98.8 F 12/25/18 07:15 Pulse 82 12/25/18 07:15 Resp 20 12/25/18 07:15 BP 111/80 12/25/18 07:15 Pulse Ox 98 12/25/18 09:50 Weight: 111 lb 1.6 oz - Exam Quality Assessment: Supplemental Oxygen General: Moderate Distress, Sedated HEENT: Conjunctiva Clear, Mucosa Moist & [place] Neck: Supple, Trachea Midline Lungs: Wheezing. No: Normal Respiratory Effort Cardiovascular: Regular Rate, Regular Rhythm GI/Abdominal Exam: Normal Bowel Sounds, Soft, Non-Tender, No Distention, No Abnormal Bruit Back Exam: Normal Inspection, Full Range of Motion. No: Paraspinal Tenderness Extremities: Normal Inspection, Non-Tender, No Pedal Edema, Normal Capillary Refill Peripheral Pulses: 2+: Posterior Tibial (L), Posterior Tibial (R), Dorsalis Pedis (L), Dorsalis Pedis (R) Skin: Warm, Dry, Wound (Multiple superficial excoriations on her extremities and face. She has a quarter size excoriation with erythema on her central forehead.) Neuro Extensive - Mental Status: Opens Eyes to Commands, Slow Response to Commands Neuro Extensive - Motor, Sensory, Reflexes: Other (Not able to obtain at this time due to lack of cooperation) Psychiatric: Agitated, Withdrawal Symptoms - Patient Data Lab Results Last 24 hrs: Laboratory Results - last 24 hr 12/25/18 12/25/18 12/25/18 Range/Units 05:19 05:19 05:19 WBC 6.60 (3.98-10.04) K/mm3 RBC 4.47 (3.98-5.22) M/mm3 Hgb 13.5 (11.2-15.7) gm/L Hct 40.1 (34.1-44.9) % MCV 89.7 (79.4-94.8) fl MCH 30.2 (25.6-32.2) pg MCHC 33.7 (32.2-35.5) g/dl RDW Std Deviation 43.7 (36.4-46.3) fL Plt Count 351 (182-369) K/mm3 MPV 8.2 L (9.4-12.3) fl Neutrophils % (Manual) 57 (40-60) % Band Neutrophils % 0 (0-10) % Lymphocytes % (Manual) 29 (20-40) % Atypical Lymphs % 0 % Monocytes % (Manual) 12 H (2-10) % Eosinophils % (Manual) 2 (0.7-5.8) % Basophils % (Manual) 0 L (0.1-1.2) Platelet Estimate Adequate RBC Morph Comment Normal Puncture Site ABG pH (7.35-7.45) ABG pCO2 (35.0-45.0) mmHg ABG pO2 (80.0-100.0) mmHg ABG HCO3 (22.0-26.0) meq/L ABG O2 Saturation (96.0-97.0) % ABG Base Excess (-2-2.0) Ruiz Test A-a Gradient mmHg O2 Delivery Device Oxygen Flow Rate Sodium 137 (136-145) mEq/L Potassium 3.5 (3.5-5.1) mEq/L Chloride 101 (98-107) mEq/L Carbon Dioxide 24 (21-32) mEq/L Anion Gap 15.5 H (5-15) BUN 12 (7-18) mg/dL Creatinine 0.7 (0.55-1.02) mg/dL Est Cr Clr Drug Dosing 86.60 mL/min Estimated GFR (MDRD) > 60 (>60) mL/min BUN/Creatinine Ratio 17.1 (14-18) Glucose 118 H (74-106) mg/dL Calcium 8.6 (8.5-10.1) mg/dL Magnesium 1.9 (1.8-2.4) mg/dl Total Bilirubin 0.5 (0.2-1.0) mg/dL AST 34 (15-37) U/L ALT 80 H (14-59) U/L Alkaline Phosphatase 90 (46-116) U/L Creatine Kinase (26-192) U/L CK-MB (CK-2) 7.8 H (0-3.6) ng/ml Troponin I < 0.017 (0.00-0.056) ng/mL C-Reactive Protein 1.8 H* (<1.0) mg/dL NT-Pro-B Natriuret Pep 53 (0-125) pg/mL Total Protein 6.9 (6.4-8.2) g/dl Albumin 3.8 (3.4-5.0) g/dl Globulin 3.1 gm/dL Albumin/Globulin Ratio 1.2 (1-2) HCG, Qual Negative (NEGATIVE) Urine Color (Yellow) Urine Appearance (Clear) Urine pH (5.0-8.0) Ur Specific [place] (1.005-1.030) Urine Protein (Negative) Urine Glucose (UA) (Negative) Urine Ketones (Negative) Urine Occult Blood (Negative) Urine Nitrite (Negative) Urine Bilirubin (Negative) Urine Urobilinogen (0.2-1.0) Ur Leukocyte Esterase (Negative) Urine RBC (0-5) /hpf Urine WBC (0-5) /hpf Ur Epithelial Cells (0-5) /hpf Urine Bacteria (FEW) /hpf Urine Mucus (FEW) /hpf Urine Opiates Screen (HAQFVY=399) Ur Buprenorphine Scrn (CUTOFF=10) Ur Oxycodone Screen (EYW3XG=615) Urine Methadone Screen (XLPDRE=587) Ur Propoxyphene Screen (YRGCPD=967) Ur Barbiturates Screen (KMFDSJ=820) Ur Tricyclics Screen (EMWQTU=883) Ur Phencyclidine Scrn (CUTOFF=25) Ur Amphetamine Screen (VVYFLE=403) U Methamphetamines Scrn (UTBPJH=846) U Benzodiazepines Scrn (JFQYGU=354) U Cocaine Metab Screen (DSTQBV=051) U Marijuana (THC) Screen (CUTOFF=50) Ethyl Alcohol (0.00) gm% Hepatitis C Antibody (NEGATIVE) HIV-1 Ab Rapid Screen (NEGATIVE) 12/25/18 12/25/18 12/25/18 Range/Units 05:19 05:19 05:20 WBC (3.98-10.04) K/mm3 RBC (3.98-5.22) M/mm3 Hgb (11.2-15.7) gm/L Hct (34.1-44.9) % MCV (79.4-94.8) fl MCH (25.6-32.2) pg MCHC (32.2-35.5) g/dl RDW Std Deviation (36.4-46.3) fL Plt Count (182-369) K/mm3 MPV (9.4-12.3) fl Neutrophils % (Manual) (40-60) % Band Neutrophils % (0-10) % Lymphocytes % (Manual) (20-40) % Atypical Lymphs % % Monocytes % (Manual) (2-10) % Eosinophils % (Manual) (0.7-5.8) % Basophils % (Manual) (0.1-1.2) Platelet Estimate RBC Morph Comment Puncture Site Lt radial ABG pH 7.34 L (7.35-7.45) ABG pCO2 44.5 (35.0-45.0) mmHg ABG pO2 68.0 L (80.0-100.0) mmHg ABG HCO3 23.1 (22.0-26.0) meq/L ABG O2 Saturation 92.0 L (96.0-97.0) % ABG Base Excess -2.3 L (-2-2.0) Ruiz Test Positive A-a Gradient 81 mmHg O2 Delivery Device Nasal cannula Oxygen Flow Rate 3.0 Sodium (136-145) mEq/L Potassium (3.5-5.1) mEq/L Chloride (98-107) mEq/L Carbon Dioxide (21-32) mEq/L Anion Gap (5-15) BUN (7-18) mg/dL Creatinine (0.55-1.02) mg/dL Est Cr Clr Drug Dosing mL/min Estimated GFR (MDRD) (>60) mL/min BUN/Creatinine Ratio (14-18) Glucose (74-106) mg/dL Calcium (8.5-10.1) mg/dL Magnesium (1.8-2.4) mg/dl Total Bilirubin (0.2-1.0) mg/dL AST (15-37) U/L ALT (14-59) U/L Alkaline Phosphatase (46-116) U/L Creatine Kinase 154 (26-192) U/L CK-MB (CK-2) (0-3.6) ng/ml Troponin I (0.00-0.056) ng/mL C-Reactive Protein (<1.0) mg/dL NT-Pro-B Natriuret Pep (0-125) pg/mL Total Protein (6.4-8.2) g/dl Albumin (3.4-5.0) g/dl Globulin gm/dL Albumin/Globulin Ratio (1-2) HCG, Qual (NEGATIVE) Urine Color (Yellow) Urine Appearance (Clear) Urine pH (5.0-8.0) Ur Specific [place] (1.005-1.030) Urine Protein (Negative) Urine Glucose (UA) (Negative) Urine Ketones (Negative) Urine Occult Blood (Negative) Urine Nitrite (Negative) Urine Bilirubin (Negative) Urine Urobilinogen (0.2-1.0) Ur Leukocyte Esterase (Negative) Urine RBC (0-5) /hpf Urine WBC (0-5) /hpf Ur Epithelial Cells (0-5) /hpf Urine Bacteria (FEW) /hpf Urine Mucus (FEW) /hpf Urine Opiates Screen (SKMGRU=565) Ur Buprenorphine Scrn (CUTOFF=10) Ur Oxycodone Screen (OQZ2LY=903) Urine Methadone Screen (QIFBQT=482) Ur Propoxyphene Screen (PQAXBA=005) Ur Barbiturates Screen (MCHWJX=969) Ur Tricyclics Screen (IYISWJ=409) Ur Phencyclidine Scrn (CUTOFF=25) Ur Amphetamine Screen (WFDACR=363) U Methamphetamines Scrn (KFPWQM=578) U Benzodiazepines Scrn (JYPNBU=169) U Cocaine Metab Screen (TJMQNY=472) U Marijuana (THC) Screen (CUTOFF=50) Ethyl Alcohol 0.00 (0.00) gm% Hepatitis C Antibody Positive H (NEGATIVE) HIV-1 Ab Rapid Screen Negative (NEGATIVE) 12/25/18 12/25/18 Range/Units 06:56 06:56 WBC (3.98-10.04) K/mm3 RBC (3.98-5.22) M/mm3 Hgb (11.2-15.7) gm/L Hct (34.1-44.9) % MCV (79.4-94.8) fl MCH (25.6-32.2) pg MCHC (32.2-35.5) g/dl RDW Std Deviation (36.4-46.3) fL Plt Count (182-369) K/mm3 MPV (9.4-12.3) fl Neutrophils % (Manual) (40-60) % Band Neutrophils % (0-10) % Lymphocytes % (Manual) (20-40) % Atypical Lymphs % % Monocytes % (Manual) (2-10) % Eosinophils % (Manual) (0.7-5.8) % Basophils % (Manual) (0.1-1.2) Platelet Estimate RBC Morph Comment Puncture Site ABG pH (7.35-7.45) ABG pCO2 (35.0-45.0) mmHg ABG pO2 (80.0-100.0) mmHg ABG HCO3 (22.0-26.0) meq/L ABG O2 Saturation (96.0-97.0) % ABG Base Excess (-2-2.0) Ruiz Test A-a Gradient mmHg O2 Delivery Device Oxygen Flow Rate Sodium (136-145) mEq/L Potassium (3.5-5.1) mEq/L Chloride (98-107) mEq/L Carbon Dioxide (21-32) mEq/L Anion Gap (5-15) BUN (7-18) mg/dL Creatinine (0.55-1.02) mg/dL Est Cr Clr Drug Dosing mL/min Estimated GFR (MDRD) (>60) mL/min BUN/Creatinine Ratio (14-18) Glucose (74-106) mg/dL Calcium (8.5-10.1) mg/dL Magnesium (1.8-2.4) mg/dl Total Bilirubin (0.2-1.0) mg/dL AST (15-37) U/L ALT (14-59) U/L Alkaline Phosphatase (46-116) U/L Creatine Kinase (26-192) U/L CK-MB (CK-2) (0-3.6) ng/ml Troponin I (0.00-0.056) ng/mL C-Reactive Protein (<1.0) mg/dL NT-Pro-B Natriuret Pep (0-125) pg/mL Total Protein (6.4-8.2) g/dl Albumin (3.4-5.0) g/dl Globulin gm/dL Albumin/Globulin Ratio (1-2) HCG, Qual (NEGATIVE) Urine Color Yellow (Yellow) Urine Appearance Clear (Clear) Urine pH 5.5 (5.0-8.0) Ur Specific [place] 1.010 (1.005-1.030) Urine Protein Negative (Negative) Urine Glucose (UA) Negative (Negative) Urine Ketones Negative (Negative) Urine Occult Blood Negative (Negative) Urine Nitrite Negative (Negative) Urine Bilirubin Negative (Negative) Urine Urobilinogen 0.2 (0.2-1.0) Ur Leukocyte Esterase Negative (Negative) Urine RBC 0-5 (0-5) /hpf Urine WBC 0-5 (0-5) /hpf Ur Epithelial Cells 0-5 (0-5) /hpf Urine Bacteria Few (FEW) /hpf Urine Mucus Few (FEW) /hpf Urine Opiates Screen Negative (SVEHKZ=589) Ur Buprenorphine Scrn Negative (CUTOFF=10) Ur Oxycodone Screen Negative (DGQ6ZJ=550) Urine Methadone Screen Negative (DFFMAJ=518) Ur Propoxyphene Screen Negative (YAFKZC=468) Ur Barbiturates Screen Negative (DZNRQU=776) Ur Tricyclics Screen Negative (NUFHWN=917) Ur Phencyclidine Scrn Negative (CUTOFF=25) Ur Amphetamine Screen Presumptive positive H (IUUASX=235) U Methamphetamines Scrn Presumptive positive H (GFNVUQ=535) U Benzodiazepines Scrn Negative (TDKLJL=189) U Cocaine Metab Screen Negative (XGMYAV=844) U Marijuana (THC) Screen Negative (CUTOFF=50) Ethyl Alcohol (0.00) gm% Hepatitis C Antibody (NEGATIVE) HIV-1 Ab Rapid Screen (NEGATIVE) Result Diagrams: 12/25/18 05:19 12/25/18 05:19 Imaging Impressions Last 24 hrs: One view x-ray of the chest obtained in the ER shows hyperinflated lung ch otherwise normal. - Problem List (1) Methamphetamine abuse SNOMED Code(s): 037962176 ICD Code: F15.10 - OTHER STIMULANT ABUSE, UNCOMPLICATED Status: Acute Current Visit: Yes (2) COPD exacerbation SNOMED Code(s): 311613948 ICD Code: J44.1 - CHRONIC OBSTRUCTIVE PULMONARY DISEASE W (ACUTE) EXACERBATION Status: Acute Current Visit: Yes (3) Wound, open, forehead SNOMED Code(s): 645835366 ICD Code: S01.80XA - UNSPECIFIED OPEN WOUND OF OTHER PART OF HEAD, INIT ENCNTR Status: Acute Current Visit: No Qualifiers: Encounter type: initial encounter Qualified Code(s): S01.80XA - Unspecified open wound of other part of head, initial encounter (4) Hx of [id number] deficiency SNOMED Code(s): 128711181 ICD Code: Z86.39 - PERSONAL HISTORY OF ENDO, NUTRITIONAL AND METABOLIC DISEASE Status: Chronic Current Visit: No Problem List Initiated/Reviewed/Updated: Yes Orders Last 24hrs: Active Orders 24 hr Category Date Time Status Admission Status [Patient Status] [ADT] Routine ADT 12/25/18 06:48 Active Antiembolic Devices [RC] PER UNIT ROUTINE Care 12/25/18 09:36 Active Bedrest Bathroom Privileges [RC] ASDIRECTED Care 12/25/18 09:31 Active Height and Weight [RC] DAILY Care 12/25/18 09:31 Active Intake and Output [RC] QSHIFT Care 12/25/18 09:33 Active Oxygen Therapy [RC] ASDIRECTED Care 12/25/18 04:46 Active Oxygen Therapy [RC] PRN Care 12/25/18 09:31 Active Pulse Oximetry [RC] CONTINUOUS Care 12/25/18 09:33 Active RT Aerosol Therapy [RC] ASDIRECTED Care 12/25/18 04:43 Active RT Aerosol Therapy [RC] ASDIRECTED Care 12/25/18 09:25 Active Up With Assistance [RC] ASDIRECTED Care 12/25/18 09:31 Active Up to Chair [RC] ASDIRECTED Care 12/25/18 09:31 Active VTE/DVT Education [RC] PER UNIT ROUTINE Care 12/25/18 09:31 Active Vital Signs [RC] Q4H Care 12/25/18 09:31 Active Consult to Case Management/Diesel Maintenance Technician [CONS] Cons 12/25/18 09:31 Active Routine Respiratory Care Assess and Treatment [CONS] Routine Cons 12/25/18 09:31 Active Regular Diet [DIET] Diet 12/25/18 Dinner Active Chest 1V Frontal [CR] AM Exams 12/26/18 05:11 Ordered Chest 1V Frontal [CR] Stat Exams 12/25/18 04:43 Taken CBC WITH AUTO DIFF [HEME] AM Lab 12/26/18 05:11 Ordered CMP [COMPREHENSIVE METABOLIC PN,CMP] [CHEM] AM Lab 12/26/18 05:11 Ordered MAGNESIUM [CHEM] AM Lab 12/26/18 05:11 Ordered PHOSPHORUS [CHEM] AM Lab 12/26/18 05:11 Ordered Acetaminophen [Tylenol] Med 12/25/18 09:31 Active 650 mg PO Q4H PRN Albuterol [Proventil Neb Soln] Med 12/25/18 09:23 Active 2.5 mg NEB Q4HRRT PRN Albuterol/Ipratropium [DuoNeb 3.0-0.5 MG/3 ML] Med 12/25/18 09:40 Active 3 ml NEB Q4HRRT Bisacodyl [Dulcolax] Med 12/25/18 09:31 Active 5 mg PO DAILY PRN Dextrose 5%-0.9% NaCl [Dextrose 5%-Normal Saline] 1,000 Med 12/25/18 04:45 Active ml IV ASDIRECTED Docusate Sodium [Colace] Med 12/25/18 09:31 Active 100 mg PO BID PRN LORazepam [Ativan] Med 12/25/18 09:31 Active 1 mg IV Q6H PRN Ondansetron [Zofran ODT] Med 12/25/18 09:31 Active 4 mg PO Q6H PRN Venlafaxine [Effexor XR] Med 12/25/18 09:00 Active 75 mg PO DAILY diphenhydrAMINE [Benadryl] Med 12/25/18 09:40 Active 25 mg PO Q4H PRN methylPREDNISolone Sod Succ [Solu-MEDROL] Med 12/25/18 09:30 Active 40 mg IVPUSH Q6H Sequential Compression Device [OM.PC] Per Unit Routine Oth 12/25/18 09:34 Ordered Resuscitation Status Routine Resus Stat 12/25/18 08:55 Ordered Medication Orders Acetaminophen (Tylenol) 650 mg PO Q4H PRN PRN Reason: Pain (Mild 1-3)/fever Albuterol (Proventil Neb Soln) 2.5 mg NEB Q4HRRT PRN PRN Reason: Dyspnea Albuterol/Ipratropium (Duoneb 3.0-0.5 Mg/3 Ml) 3 ml NEB Q4HRRT [facility], [facility]1983 Last Admin: 12/25/18 09:47 Dose: 3 ml Bisacodyl (Dulcolax) 5 mg PO DAILY PRN PRN Reason: Constipation Diphenhydramine HCl (Benadryl) 25 mg PO Q4H PRN PRN Reason: Itching Docusate Sodium (Colace) 100 mg PO BID PRN PRN Reason: Constipation Dextrose/Sodium Chloride (Dextrose 5%-Normal Saline) 1,000 mls @ 250 mls/hr IV ASDIRECTED [facility], [facility]1983 Last Admin: 12/25/18 04:54 Dose: 250 mls/hr Lorazepam (Ativan) 1 mg IV Q6H PRN PRN Reason: Anxiety Methylprednisolone Sodium Succinate (Solu-Medrol) 40 mg IVPUSH Q6H RICHARD Ondansetron HCl (Zofran Odt) 4 mg PO Q6H PRN PRN Reason: nausea, able to take PO Venlafaxine HCl (Effexor Xr) 75 mg PO DAILY [facility] Assessment/Plan Comment:: COPD exacerbation - Place patient on observation status - Continuous pulse oximetry and FiO2 per nasal cannula to keep SPO2 above 92% . - DuoNeb nebs every 4 hours scheduled - Albuterol nebulizer every 4 hours when necessary. - IV Solu-Medrol until taking well orally and we will switch to prednisone. Methamphetamine abuse - Monitor patient closely. - She may be more somnolent and or agitated as she withdraws from methamphetamine. - Lorazepam 1 mg every 4 hours when necessary anxiety - Consult case management Multiple superficial excoriations secondary to picking secondary to above - Topical antibiotic ointment to be applied to each. Continue monitoring closely in the hospital. No need for oral antibiotics at this time. Hepatitis C - At this time I do not know if this is a new diagnosis for her or a pre- existing diagnosis. Will discuss this with her when she is able to communicate well. History of alpha-1 antitrypsin deficiency - Encourage smoking cessation
[2018-12-25] MEDS: Venlafaxine 75 MG Cap.ER PO SCH (10:26)
[2018-12-25] MEDS: methylPREDNISolone Sodium Succinate 40 MG/1 ML SDV IVPUSH SCH ×3 (10:27→20:33)
[2018-12-25] MEDS: Lactated Ringers 1,000 ML IV SCH (14:51)
[2018-12-25] MEDS: Bacitracin Oint 15 GM Tube TOP SCH ×2 (15:41→20:26)
--- NOTE | 2018-12-25 15:51 | CR ---
Chest: Portable view of the chest was obtained. Comparison: No prior chest x-ray. Heart size and mediastinum are normal. Lungs show mild interstitial change within the left upper lung. Minimal peribronchial wall thickening is seen within the perihilar markings. Lungs otherwise are clear. Lungs are hyperinflated compatible with either hyperinflation, changes of asthma or emphysematous change. Bone window settings are grossly intact. Impression: 1. Slight bronchitis with mild interstitial change within the left upper chest possibly due to more focal area of bronchitis versus small area of pneumonia. 2. Hyperinflated lungs as described above. Diagnostic code #3
[2018-12-25] MEDS: Enoxaparin 40 MG/0.4 ML Syringe SUBCUT SCH (17:18)
[2018-12-25] MEDS: LORazepam 2 MG/ML SDV IV PRN (20:27)
[2018-12-26] MEDS: Lactated Ringers 1,000 ML IV SCH ×3 (00:04→17:39)
[2018-12-26] MEDS: methylPREDNISolone Sodium Succinate 40 MG/1 ML SDV IVPUSH SCH ×4 (04:26→21:21)
[2018-12-26] MEDS: LORazepam 2 MG/ML SDV IV PRN (05:36)
[2018-12-26] MEDS: Albuterol/Ipratropium 3.0-0.5 MG/3 ML Neb Soln NEB SCH ×4 (05:38→22:00)
--- NOTE | 2018-12-26 08:05 | CR ---
Chest: Frontal view of the chest was obtained utilizing portable technique. Comparison: Prior chest x-ray of 12/25/18. Heart size and mediastinum are normal. Lungs are hyperinflated. Parenchymal density within the left upper chest remains but appears to be slightly improved from previous exam. Mild bronchitis believed to be present. Lungs otherwise are clear. Bony structures are grossly intact. Impression: 1. Slight parenchymal density within the left upper chest remains but appears slightly improved from previous exam. 2. Mild persisting bronchitis is noted. 3. Continuing hyperinflated lungs with differential as previously described. Diagnostic code #3
[2018-12-26] MEDS: Enoxaparin 40 MG/0.4 ML Syringe SUBCUT SCH (09:10)
[2018-12-26] MEDS: Venlafaxine 75 MG Cap.ER PO SCH (09:10)
[2018-12-26] MEDS: Bacitracin Oint 15 GM Tube TOP SCH (09:23)
[2018-12-26] MEDS ORDERED: LORazepam 2 MG/ML SDV IVPUSH ONE (10:01)
[2018-12-26] MEDS ORDERED: Multivitamins,Therapeutic Tab PO ONE (10:39)
[2018-12-26] MEDS: LORazepam 2 MG/ML SDV IV SCH ×3 (12:21→16:07)
[2018-12-26] MEDS: Thiamine 100 MG Tab PO SCH (12:22)
[2018-12-26] MEDS: Pantoprazole 40 MG Vial IV SCH (12:22)
[2018-12-26] MEDS: Folic Acid 1 MG Tab PO SCH (12:25)
[2018-12-26] MEDS: ClonazePAM 1 MG Tab PO SCH ×3 (13:19→21:21)
--- NOTE | 2018-12-26 14:44 | PCM.PN ---
- General Info Date of Service: 12/26/18 Admission Dx/Problem (Free Text): Admission Diagnosis/Problem Admission Diagnosis/Problem COPD, Severe chronic obstructive pulmonary disease Subjective Update: Patient had an improvement overnight in regards to her pulmonary function. She is less wheezy and having less shortness of breath. Unfortunately, after withdrawing from her methamphetamine use she has had increasing anxiety. She was given 1 mg of lorazepam IV overnight 2, but her anxiety has progressively worsened as morning. Because of the worsening anxiety and withdrawal symptoms a CIWA protocol was started and patient was transferred to the ICU. - Review of Systems General: Reports: Fatigue HEENT: Reports: Sore Throat Pulmonary: Reports: Shortness of Breath, Cough, Wheezing Cardiovascular: Denies: Chest Pain Gastrointestinal: Reports: No Symptoms. Denies: Abdominal Pain Genitourinary: Reports: No Symptoms Psychiatric: Reports: Anxiety, Agitation - Patient Data Vitals - Most Recent: Last Vital Signs Temp 97.6 F 12/26/18 12:00 Pulse 102 H 12/26/18 12:00 Resp 26 H 12/26/18 12:00 BP 103/75 12/26/18 12:00 Pulse Ox 98 12/26/18 12:00 Weight - Most Recent: 113 lb 11.2 oz I&O - Last 24 Hours: Intake & Output 12/25/18 12/26/18 12/26/18 22:59 06:59 14:59 Intake Total 2397 2036 520 Output Total 400 1300 Balance 1996 736 520 Lab Results Last 24 Hours: Laboratory Results - last 24 hr 12/26/18 12/26/18 Range/Units 06:10 06:10 WBC 10.18 H (3.98-10.04) K/mm3 RBC 4.05 (3.98-5.22) M/mm3 Hgb 12.4 (11.2-15.7) gm/L Hct 37.4 (34.1-44.9) % MCV 92.3 (79.4-94.8) fl MCH 30.6 (25.6-32.2) pg MCHC 33.2 (32.2-35.5) g/dl RDW Std Deviation 45.4 (36.4-46.3) fL Plt Count 340 (182-369) K/mm3 MPV 8.5 L (9.4-12.3) fl Neut % (Auto) 88.6 H (34.0-71.1) % Lymph % (Auto) 8.7 L (19.3-51.7) % [place] % (Auto) 2.4 L (4.7-12.5) % Eos % (Auto) 0.1 L (0.7-5.8) Baso % (Auto) 0.1 (0.1-1.2) % Neut # (Auto) 9.02 H (1.56-6.13) K/mm3 Lymph # (Auto) 0.89 L (1.18-3.74) K/mm3 [place] # (Auto) 0.24 (0.24-0.36) K/mm3 Eos # (Auto) 0.01 L (0.04-0.36) K/mm3 Baso # (Auto) 0.01 (0.01-0.08) K/mm3 Manual Slide Review Normal smear Sodium 140 (136-145) mEq/L Potassium 4.0 (3.5-5.1) mEq/L Chloride 106 (98-107) mEq/L Carbon Dioxide 28 (21-32) mEq/L Anion Gap 10.0 (5-15) BUN 9 (7-18) mg/dL Creatinine 0.7 (0.55-1.02) mg/dL Est Cr Clr Drug Dosing 85.24 mL/min Estimated GFR (MDRD) > 60 (>60) mL/min BUN/Creatinine Ratio 12.9 L (14-18) Glucose 121 H (74-106) mg/dL Calcium 8.5 (8.5-10.1) mg/dL Phosphorus 3.8 (2.6-4.7) mg/dL Magnesium 1.8 (1.8-2.4) mg/dl Total Bilirubin 0.4 (0.2-1.0) mg/dL AST 31 (15-37) U/L ALT 67 H (14-59) U/L Alkaline Phosphatase 78 (46-116) U/L Creatine Kinase 70 (26-192) U/L C-Reactive Protein 1.0 (<1.0) mg/dL Total Protein 6.1 L (6.4-8.2) g/dl Albumin 3.1 L (3.4-5.0) g/dl Globulin 3.0 gm/dL Albumin/Globulin Ratio 1.0 (1-2) Med Orders - Current: Current Medications Acetaminophen (Tylenol) 650 mg PO Q4H PRN PRN Reason: Pain (Mild 1-3)/fever Albuterol (Proventil Neb Soln) 2.5 mg NEB Q4HRRT PRN PRN Reason: Dyspnea Albuterol/Ipratropium (Duoneb 3.0-0.5 Mg/3 Ml) 3 ml NEB QIDRT [facility] Last Admin: 12/26/18 09:26 Dose: 3 ml Bisacodyl (Dulcolax) 5 mg PO DAILY PRN PRN Reason: Constipation Clonazepam (Klonopin) 2 mg PO TID [facility] Last Admin: 12/26/18 13:19 Dose: 2 mg Diphenhydramine HCl (Benadryl) 25 mg PO Q4H PRN PRN Reason: Itching Docusate Sodium (Colace) 100 mg PO BID PRN PRN Reason: Constipation Enoxaparin Sodium (Lovenox) 40 mg SUBCUT DAILY [facility] Last Admin: 12/26/18 09:10 Dose: 40 mg Folic Acid (Folic Acid) 1 mg PO DAILY [facility] Stop: 12/28/18 09:01 Last Admin: 12/26/18 12:25 Dose: 1 mg Lactated Ringer's (Ringers, Lactated) 1,000 mls @ 125 mls/hr IV ASDIRECTED [facility] Last Admin: 12/26/18 10:12 Dose: 125 mls/hr Vancomycin HCl 0.75 gm/ Sodium (Chloride) 250 mls @ 250 mls/hr IV Q12H [facility] Lorazepam (Ativan) 1 mg IV Q6H PRN PRN Reason: Anxiety Last Admin: 12/26/18 05:36 Dose: 1 mg Lorazepam (Ativan) 0 mg IV ASDIRECTED [facility]; Protocol Last Admin: 12/26/18 13:51 Dose: 2 mg Methylprednisolone Sodium Succinate (Solu-Medrol) 40 mg IVPUSH Q6H [facility] Last Admin: 12/26/18 09:09 Dose: 40 mg Mupirocin (Bactroban Oint) 0 gm TOP TID [facility] Ondansetron HCl (Zofran Odt) 4 mg PO Q6H PRN PRN Reason: nausea, able to take PO Pantoprazole Sodium (Protonix Iv) 40 mg IV DAILY [facility] Last Admin: 12/26/18 12:22 Dose: 40 mg Thiamine HCl (Vitamin B-1) 100 mg PO DAILY [facility] Last Admin: 12/26/18 12:22 Dose: 100 mg Vancomycin HCl (Pharmacy To Dose - Vancomycin) 1 dose .XX ASDIRECTED [facility] Venlafaxine HCl (Effexor Xr) 75 mg PO DAILY [facility] Last Admin: 12/26/18 09:10 Dose: 75 mg Discontinued Medications Albuterol/Ipratropium (Duoneb 3.0-0.5 Mg/3 Ml) 3 ml NEB ONETIME ONE Stop: 12/25/18 04:43 Last Admin: 12/25/18 04:58 Dose: 3 ml Albuterol/Ipratropium (Duoneb 3.0-0.5 Mg/3 Ml) 3 ml NEB Q4HRRT [facility] Albuterol/Ipratropium (Duoneb 3.0-0.5 Mg/3 Ml) 3 ml NEB Q4HRRT [facility] Last Admin: 12/25/18 18:00 Dose: 3 ml Bacitracin (Bacitracin Oint) 0 gm TOP TID [facility] Last Admin: 12/26/18 09:23 Dose: 1 applic Dextrose/Sodium Chloride (Dextrose 5%-Normal Saline) 1,000 mls @ 250 mls/hr IV ASDIRECTED [facility] Stop: 12/25/18 12:45 Last Admin: 12/25/18 10:48 Dose: 250 mls/hr Promethazine HCl 25 mg/ Sodium (Chloride) 51 mls @ 100 mls/hr IV ONETIME ONE Stop: 12/25/18 05:13 Last Admin: 12/25/18 05:11 Dose: 100 mls/hr Vancomycin HCl 0.75 gm/ Sodium (Chloride) 250 mls @ 166.667 mls/hr IV ONETIME ONE Stop: 12/25/18 21:29 Last Admin: 12/25/18 20:30 Dose: 166.667 mls/hr Vancomycin HCl 0.75 gm/ Sodium (Chloride) 250 mls @ 250 mls/hr IV Q8H [facility] Last Admin: 12/26/18 04:26 Dose: 250 mls/hr Influenza Virus Vaccine (Pharmacy To Dose - Influenza Vaccine) 1 each IM ONETIME ONE Stop: 12/25/18 19:54 Influenza Virus Vaccine (Fluzone Quad 8499-6376 Syringe) 60 mcg IM .ONCE ONE Stop: 12/26/18 09:01 Last Admin: 12/26/18 12:54 Dose: Not Given Lorazepam (Ativan) 1 mg IVPUSH ONETIME ONE Stop: 12/25/18 04:44 Last Admin: 12/25/18 04:55 Dose: 1 mg Lorazepam (Ativan) 1 mg IVPUSH ONETIME ONE Stop: 12/25/18 06:47 Last Admin: 12/25/18 06:47 Dose: 1 mg Lorazepam (Ativan) Confirm Administered Dose 2 mg .ROUTE .STK-MED ONE Stop: 12/25/18 06:46 Last Admin: 12/25/18 06:48 Dose: Not Given Lorazepam (Ativan) 1 mg IVPUSH ONETIME ONE Stop: 12/26/18 10:02 Last Admin: 12/26/18 10:09 Dose: 1 mg Multivitamins (Thera) 1 each PO ONETIME ONE Stop: 12/26/18 10:40 Last Admin: 12/26/18 12:21 Dose: 1 each - Exam Quality Assessment: Supplemental Oxygen General: Alert, Oriented, Cooperative HEENT: Pupils Equal, Pupils Reactive Neck: Supple, Trachea Midline Lungs: Normal Respiratory Effort, Wheezing Cardiovascular: Regular Rate, Regular Rhythm GI/Abdominal Exam: Normal Bowel Sounds, Soft, Non-Tender, No Distention Extremities: Normal Inspection, Normal Range of Motion, No Pedal Edema, Normal Capillary Refill Skin: Warm, Dry, Intact Psy/Mental Status: Alert, Anxious, Agitated - Problem List & Annotations (1) Methamphetamine abuse SNOMED Code(s): 241412761 Code(s): F15.10 - OTHER STIMULANT ABUSE, UNCOMPLICATED Status: Acute Current Visit: Yes (2) COPD exacerbation SNOMED Code(s): 483419125 Code(s): J44.1 - CHRONIC OBSTRUCTIVE PULMONARY DISEASE W (ACUTE) EXACERBATION Status: Acute Current Visit: Yes (3) Wound, open, forehead SNOMED Code(s): 092641381 Code(s): S01.80XA - UNSPECIFIED OPEN WOUND OF OTHER PART OF HEAD, INIT ENCNTR Status: Acute Current Visit: No Qualifiers: Encounter type: initial encounter Qualified Code(s): S01.80XA - Unspecified open wound of other part of head, initial encounter (4) Hx of [id number] deficiency SNOMED Code(s): 727973271 Code(s): Z86.39 - PERSONAL HISTORY OF ENDO, NUTRITIONAL AND METABOLIC DISEASE Status: Chronic Current Visit: No - Problem List Review Problem List Initiated/Reviewed/Updated: Yes - My Orders Last 24 Hours: My Active Orders 12/25/18 16:30 Enoxaparin [Lovenox] 40 mg SUBCUT DAILY 12/25/18 17:59 Consult to Physical Therapy [PT Evaluation and Treatment] [CONS] Routine 12/25/18 19:00 Pharmacy to Dose - Vancomycin 1 dose .XX ASDIRECTED 12/25/18 19:04 Blood Culture x2 Reflex Set [OM.PC] Stat 12/25/18 19:24 CULTURE BLOOD [BC] Stat 12/25/18 19:28 CULTURE BLOOD [BC] Stat 12/25/18 19:53 Influenza Vaccine Charge [RC] .DISCHARGE 12/25/18 21:00 Albuterol/Ipratropium [DuoNeb 3.0-0.5 MG/3 ML] 3 ml NEB QIDRT 12/25/18 Dinner Regular Diet [DIET] 12/26/18 10:39 CIWAA Assessment [RC] Q15M CIWAA Assessment [RC] Q30M Notify Provider [RC] .PRN 12/26/18 10:45 Folic Acid 1 mg PO DAILY LORazepam [Ativan] See Protocol IV ASDIRECTED Pantoprazole [ProTONIX IV] 40 mg IV DAILY Thiamine [Vitamin B-1] 100 mg PO DAILY 12/26/18 11:28 Patient Status [ADT] Routine 12/26/18 15:00 ClonazePAM [KlonoPIN] 2 mg PO TID Mupirocin Oint [Bactroban Oint] 0 gm TOP TID 12/26/18 16:00 Vancomycin 0.75 gm Sodium Chloride 0.9% [Normal Saline] 250 ml IV Q12H 12/27/18 15:30 VANCOMYCIN TROUGH [CHEM] Timed - Plan Plan:: COPD exacerbation - Place patient on inpatient status secondary to her withdrawal from methamphetamine - Continuous pulse oximetry and FiO2 per nasal cannula to keep SPO2 above 92% . - DuoNeb nebs every 6 hours hours scheduled - Albuterol nebulizer every 4 hours when necessary. - IV Solu-Medrol until taking well orally and we will switch to prednisone. Methamphetamine abuse - Withdrawal symptoms have worsened. She has worsening anxiety. - Monitor in the ICU - Clonazepam 2 mg 3 times a day for anxiety and withdrawal symptoms - [facility] protocol - Consult case management Multiple superficial excoriations secondary to picking secondary to above - Topical antibiotic ointment to be applied to each. - Patient was started on vancomycin IV last night after a fever and swelling in the right jaw. Likely we can switch over to by mouth after a couple of days. Hepatitis C - Patient states that this is a chronic condition. History of alpha-1 antitrypsin deficiency - Encourage smoking cessation - Start nicotine patch VTE prophylaxis with Lovenox 40 mg subcutaneous Discharge planning and social work in the morning.
[2018-12-26] MEDS: Mupirocin Oint 22 GM Tube TOP SCH ×2 (15:02→21:21)
[2018-12-26] MEDS: Nicotine 21 MG/24 Hr Patch TRDERM SCH (15:25)
[2018-12-27] MEDS: Lactated Ringers 1,000 ML IV SCH ×3 (02:07→19:57)
[2018-12-27] MEDS: methylPREDNISolone Sodium Succinate 40 MG/1 ML SDV IVPUSH SCH ×2 (04:03→08:10)
[2018-12-27] MEDS: Albuterol/Ipratropium 3.0-0.5 MG/3 ML Neb Soln NEB SCH ×2 (05:46→09:59)
[2018-12-27] MEDS: Nicotine 21 MG/24 Hr Patch TRDERM SCH (08:38)
[2018-12-27] MEDS: ClonazePAM 1 MG Tab PO SCH ×3 (08:39→20:35)
[2018-12-27] MEDS: Venlafaxine 75 MG Cap.ER PO SCH (08:39)
[2018-12-27] MEDS: Folic Acid 1 MG Tab PO SCH (08:39)
[2018-12-27] MEDS: Enoxaparin 40 MG/0.4 ML Syringe SUBCUT SCH (08:40)
[2018-12-27] MEDS: Thiamine 100 MG Tab PO SCH (08:41)
[2018-12-27] MEDS: Pantoprazole 40 MG Vial IV SCH (08:41)
[2018-12-27] MEDS: Remove Patch*NICOTINE TRDERM SCH (08:41)
[2018-12-27] MEDS: Mupirocin Oint 22 GM Tube TOP SCH ×3 (08:44→20:34)
[2018-12-27] MEDS: LORazepam 2 MG/ML SDV IV SCH ×2 (10:32→17:27)
--- NOTE | 2018-12-27 15:25 | PCM.PN ---
- General Info Date of Service: 12/27/18 Admission Dx/Problem (Free Text): Admission Diagnosis/Problem Admission Diagnosis/Problem COPD, Severe chronic obstructive pulmonary disease Subjective Update: December 27, 2018 Patient did well overnight in regards to her withdrawal symptoms. She did not need any more as needed lorazepam. She also has continued to improve in regards to her respiratory status. White count has come down overnight. December 26, 2018 Patient had an improvement overnight in regards to her pulmonary function. She is less wheezy and having less shortness of breath. Unfortunately, after withdrawing from her methamphetamine use she has had increasing anxiety. She was given 1 mg of lorazepam IV overnight 2, but her anxiety has progressively worsened as morning. Because of the worsening anxiety and withdrawal symptoms a CIWA protocol was started and patient was transferred to the ICU. - Review of Systems General: Reports: No Symptoms HEENT: Reports: No Symptoms Pulmonary: Reports: No Symptoms Cardiovascular: Reports: No Symptoms Psychiatric: Reports: No Symptoms - Patient Data Vitals - Most Recent: Last Vital Signs Temp 98.2 F 12/27/18 12:00 Pulse 116 H 12/27/18 14:23 Resp 20 12/27/18 12:00 BP 134/87 12/27/18 12:00 Pulse Ox 93 L 12/27/18 12:00 Weight - Most Recent: 113 lb 11.184 oz I&O - Last 24 Hours: Intake & Output 12/27/18 12/27/18 12/27/18 06:59 14:59 22:59 Intake Total 2475 Balance 2475 Lab Results Last 24 Hours: Laboratory Results - last 24 hr 12/27/18 12/27/18 Range/Units 04:25 04:25 WBC 8.68 (3.98-10.04) K/mm3 RBC 3.95 L (3.98-5.22) M/mm3 Hgb 11.8 (11.2-15.7) gm/L Hct 36.8 (34.1-44.9) % MCV 93.2 (79.4-94.8) fl MCH 29.9 (25.6-32.2) pg MCHC 32.1 L (32.2-35.5) g/dl RDW Std Deviation 46.3 (36.4-46.3) fL Plt Count 315 (182-369) K/mm3 MPV 9.0 L (9.4-12.3) fl Neut % (Auto) 83.9 H (34.0-71.1) % Lymph % (Auto) 13.6 L (19.3-51.7) % [place] % (Auto) 2.1 L (4.7-12.5) % Eos % (Auto) 0.1 L (0.7-5.8) Baso % (Auto) 0.2 (0.1-1.2) % Neut # (Auto) 7.28 H (1.56-6.13) K/mm3 Lymph # (Auto) 1.18 (1.18-3.74) K/mm3 [place] # (Auto) 0.18 L (0.24-0.36) K/mm3 Eos # (Auto) 0.01 L (0.04-0.36) K/mm3 Baso # (Auto) 0.02 (0.01-0.08) K/mm3 Sodium 140 (136-145) mEq/L Potassium 4.2 (3.5-5.1) mEq/L Chloride 104 (98-107) mEq/L Carbon Dioxide 27 (21-32) mEq/L Anion Gap 13.2 (5-15) BUN 11 (7-18) mg/dL Creatinine 0.7 (0.55-1.02) mg/dL Est Cr Clr Drug Dosing 86.60 mL/min Estimated GFR (MDRD) > 60 (>60) mL/min BUN/Creatinine Ratio 15.7 (14-18) Glucose 123 H (74-106) mg/dL Calcium 8.6 (8.5-10.1) mg/dL Magnesium 1.8 (1.8-2.4) mg/dl Total Bilirubin 0.3 (0.2-1.0) mg/dL AST 20 (15-37) U/L ALT 53 (14-59) U/L Alkaline Phosphatase 69 (46-116) U/L Total Protein 5.8 L (6.4-8.2) g/dl Albumin 2.8 L (3.4-5.0) g/dl Globulin 3.0 gm/dL Albumin/Globulin Ratio 0.9 L (1-2) Wojciech Results Last 24 Hours: Microbiology 12/25/18 19:28 Aerobic Blood Culture - Preliminary Blood - Venous NO GROWTH AFTER 1 DAY Anaerobic Blood Culture - Preliminary NO GROWTH AFTER 1 DAY 12/25/18 19:24 Aerobic Blood Culture - Preliminary Blood - Venous - Lab Draw NO GROWTH AFTER 1 DAY Anaerobic Blood Culture - Preliminary NO GROWTH AFTER 1 DAY Med Orders - Current: Current Medications Acetaminophen (Tylenol) 650 mg PO Q4H PRN PRN Reason: Pain (Mild 1-3)/fever Albuterol (Proventil Neb Soln) 2.5 mg NEB Q4HRRT PRN PRN Reason: Dyspnea Bisacodyl (Dulcolax) 5 mg PO DAILY PRN PRN Reason: Constipation Clonazepam (Klonopin) 1 mg PO TID [facility] Last Admin: 12/27/18 08:39 Dose: 1 mg Diphenhydramine HCl (Benadryl) 25 mg PO Q4H PRN PRN Reason: Itching Docusate Sodium (Colace) 100 mg PO BID PRN PRN Reason: Constipation Enoxaparin Sodium (Lovenox) 40 mg SUBCUT DAILY [facility] Last Admin: 12/27/18 08:40 Dose: 40 mg Folic Acid (Folic Acid) 1 mg PO DAILY [facility] Stop: 12/28/18 09:01 Last Admin: 12/27/18 08:39 Dose: 1 mg Lactated Ringer's (Ringers, Lactated) 1,000 mls @ 125 mls/hr IV ASDIRECTED [facility] Last Admin: 12/27/18 11:23 Dose: 125 mls/hr Vancomycin HCl 0.75 gm/ Sodium (Chloride) 250 mls @ 250 mls/hr IV Q12H [facility] Last Admin: 12/27/18 04:03 Dose: 250 mls/hr Lorazepam (Ativan) 1 mg IV Q6H PRN PRN Reason: Anxiety Last Admin: 12/26/18 05:36 Dose: 1 mg Lorazepam (Ativan) 0 mg IV ASDIRECTED [facility]; Protocol Last Admin: 12/27/18 10:32 Dose: 2 mg Miscellaneous Information (Remove Patch) 1 ea TRDERM DAILY [facility] Last Admin: 12/27/18 08:41 Dose: 1 ea Mupirocin (Bactroban Oint) 0 gm TOP TID [facility] Last Admin: 12/27/18 08:44 Dose: 1 applic Nicotine (Habitrol) 21 mg TRDERM DAILY [facility] Last Admin: 12/27/18 08:38 Dose: 21 mg Ondansetron HCl (Zofran Odt) 4 mg PO Q6H PRN PRN Reason: nausea, able to take PO Pantoprazole Sodium (Protonix) 40 mg PO DAILY@0700 [facility] Prednisone (Prednisone) 40 mg PO WITHBREAKFAST [facility] Thiamine HCl (Vitamin B-1) 100 mg PO DAILY [facility] Last Admin: 12/27/18 08:41 Dose: 100 mg Vancomycin HCl (Pharmacy To Dose - Vancomycin) 1 dose .XX ASDIRECTED [facility] Venlafaxine HCl (Effexor Xr) 75 mg PO DAILY [facility] Last Admin: 12/27/18 08:39 Dose: 75 mg Discontinued Medications Albuterol/Ipratropium (Duoneb 3.0-0.5 Mg/3 Ml) 3 ml NEB ONETIME ONE Stop: 12/25/18 04:43 Last Admin: 12/25/18 04:58 Dose: 3 ml Albuterol/Ipratropium (Duoneb 3.0-0.5 Mg/3 Ml) 3 ml NEB Q4HRRT [facility] Albuterol/Ipratropium (Duoneb 3.0-0.5 Mg/3 Ml) 3 ml NEB Q4HRRT [facility] Last Admin: 12/25/18 18:00 Dose: 3 ml Albuterol/Ipratropium (Duoneb 3.0-0.5 Mg/3 Ml) 3 ml NEB QIDRT [facility] Last Admin: 12/27/18 09:59 Dose: 3 ml Bacitracin (Bacitracin Oint) 0 gm TOP TID [facility] Last Admin: 12/26/18 09:23 Dose: 1 applic Clonazepam (Klonopin) 2 mg PO TID [facility] Last Admin: 12/26/18 21:21 Dose: 2 mg Dextrose/Sodium Chloride (Dextrose 5%-Normal Saline) 1,000 mls @ 250 mls/hr IV ASDIRECTED [facility] Stop: 12/25/18 12:45 Last Admin: 12/25/18 10:48 Dose: 250 mls/hr Promethazine HCl 25 mg/ Sodium (Chloride) 51 mls @ 100 mls/hr IV ONETIME ONE Stop: 12/25/18 05:13 Last Admin: 12/25/18 05:11 Dose: 100 mls/hr Vancomycin HCl 0.75 gm/ Sodium (Chloride) 250 mls @ 166.667 mls/hr IV ONETIME ONE Stop: 12/25/18 21:29 Last Admin: 12/25/18 20:30 Dose: 166.667 mls/hr Vancomycin HCl 0.75 gm/ Sodium (Chloride) 250 mls @ 250 mls/hr IV Q8H [facility] Last Admin: 12/26/18 04:26 Dose: 250 mls/hr Influenza Virus Vaccine (Pharmacy To Dose - Influenza Vaccine) 1 each IM ONETIME ONE Stop: 12/25/18 19:54 Influenza Virus Vaccine (Fluzone Quad [id number] Syringe) 60 mcg IM .ONCE ONE Stop: 12/26/18 09:01 Last Admin: 12/26/18 12:54 Dose: Not Given Lorazepam (Ativan) 1 mg IVPUSH ONETIME ONE Stop: 12/25/18 04:44 Last Admin: 12/25/18 04:55 Dose: 1 mg Lorazepam (Ativan) 1 mg IVPUSH ONETIME ONE Stop: 12/25/18 06:47 Last Admin: 12/25/18 06:47 Dose: 1 mg Lorazepam (Ativan) Confirm Administered Dose 2 mg .ROUTE .STK-MED ONE Stop: 12/25/18 06:46 Last Admin: 12/25/18 06:48 Dose: Not Given Lorazepam (Ativan) 1 mg IVPUSH ONETIME ONE Stop: 12/26/18 10:02 Last Admin: 12/26/18 10:09 Dose: 1 mg Methylprednisolone Sodium Succinate (Solu-Medrol) 40 mg IVPUSH Q6H [facility] Last Admin: 12/27/18 08:10 Dose: 40 mg Multivitamins (Thera) 1 each PO ONETIME ONE Stop: 12/26/18 10:40 Last Admin: 12/26/18 12:21 Dose: 1 each Pantoprazole Sodium (Protonix Iv) 40 mg IV DAILY [facility] Last Admin: 12/27/18 08:41 Dose: 40 mg - Exam Quality Assessment: Supplemental Oxygen General: Alert, Oriented HEENT: Pupils Equal, Pupils Reactive Neck: Supple Lungs: Clear to Auscultation, Normal Respiratory Effort Cardiovascular: Regular Rate, Regular Rhythm GI/Abdominal Exam: Normal Bowel Sounds, Soft, Non-Tender, No Distention Extremities: Normal Inspection, No Pedal Edema Peripheral Pulses: 2+: Posterior Tibial (L), Posterior Tibial (R), Dorsalis Pedis (L), Dorsalis Pedis (R) Skin: Warm, Dry Psy/Mental Status: Alert, Normal Affect, Normal Mood - Problem List & Annotations (1) Methamphetamine abuse SNOMED Code(s): 728916277 Code(s): F15.10 - OTHER STIMULANT ABUSE, UNCOMPLICATED Status: Acute Current Visit: Yes (2) COPD exacerbation SNOMED Code(s): 979351156 Code(s): J44.1 - CHRONIC OBSTRUCTIVE PULMONARY DISEASE W (ACUTE) EXACERBATION Status: Acute Current Visit: Yes (3) Wound, open, forehead SNOMED Code(s): 526631355 Code(s): S01.80XA - UNSPECIFIED OPEN WOUND OF OTHER PART OF HEAD, INIT ENCNTR Status: Acute Current Visit: No Qualifiers: Encounter type: initial encounter Qualified Code(s): S01.80XA - Unspecified open wound of other part of head, initial encounter (4) Hx of elego-[id number]-[id number] deficiency SNOMED Code(s): 201354293 Code(s): Z86.39 - PERSONAL HISTORY OF ENDO, NUTRITIONAL AND METABOLIC DISEASE Status: Chronic Current Visit: No - Problem List Review Problem List Initiated/Reviewed/Updated: Yes - My Orders Last 24 Hours: My Active Orders 12/26/18 14:45 Consult to Case Management/Shipping Technician [CONS] Routine Nicotine [Habitrol] 21 mg TRDERM DAILY 12/26/18 15:00 Mupirocin Oint [Bactroban Oint] 0 gm TOP TID 12/26/18 16:00 Vancomycin 0.75 gm Sodium Chloride 0.9% [Normal Saline] 250 ml IV Q12H 12/27/18 09:00 ClonazePAM [KlonoPIN] 1 mg PO TID Remove Patch 1 ea TRDERM DAILY 12/27/18 15:18 RT Post Treatment Assessment [RC] Click to Edit RT Pre-Treatment Assessment [RC] Click to Edit Albuterol/Ipratropium [DuoNeb 3.0-0.5 MG/3 ML] 3 ml NEB Q6HRRT PRN 12/27/18 15:19 RT Aerosol Therapy [RC] ASDIRECTED 12/27/18 15:30 VANCOMYCIN TROUGH [CHEM] Timed Tiotropium [Spiriva HandiHaler] 18 mcg INH DAILY 12/28/18 05:11 CBC WITH AUTO DIFF [HEME] AM CMP [COMPREHENSIVE METABOLIC PN,CMP] [CHEM] AM MAGNESIUM [CHEM] AM 12/28/18 07:00 Pantoprazole [ProTONIX] 40 mg PO DAILY@0700 predniSONE 40 mg PO WITHBREAKFAST - Plan Plan:: COPD exacerbation - Place patient on inpatient status secondary to her withdrawal from methamphetamine - Continuous pulse oximetry and FiO2 per nasal cannula to keep SPO2 above 92% . - Switch DuoNeb every 6 hours when necessary and add Spiriva and albuterol HFA when necessary. - Albuterol nebulizer every 4 hours when necessary. - DC IV Solu-Medrol and we will switch to prednisone. Methamphetamine abuse - Withdrawal symptoms have improved She has worsening anxiety. - Continue monitoring in the ICU - Decrease Clonazepam to 1 mg 3 times a day for anxiety and withdrawal symptoms - [facility] protocol - Consult case management/social work/behavioral health Multiple superficial excoriations secondary to picking secondary to above - Topical Bactroban ointment to be applied to each. - Patient was started on vancomycin IV last night after a fever and swelling in the right jaw. Likely we can switch over to by mouth after a couple of days. Hepatitis C - Patient states that this is a chronic condition. History of alpha-1 antitrypsin deficiency - Encourage smoking cessation - Start nicotine patch VTE prophylaxis with Lovenox 40 mg subcutaneous
[2018-12-27] MEDS ORDERED: Albuterol 6.7 GM Inhaler INH PRN (15:26)
[2018-12-27] MEDS: Glycopyrrolate 15.6 MCG Cap.W.Dev Kit of 6 IH SCH (21:10)
[2018-12-27] MEDS: Albuterol 0.083% 2.5 MG/3 ML Neb Soln NEB PRN (21:10)
[2018-12-28] MEDS: Lactated Ringers 1,000 ML IV SCH (03:54)
[2018-12-28] MEDS: predniSONE 20 MG Tab PO SCH (06:30)
[2018-12-28] MEDS: Pantoprazole 40 MG Tab.CR PO SCH (06:30)
[2018-12-28] MEDS: Albuterol 0.083% 2.5 MG/3 ML Neb Soln NEB PRN ×2 (06:40→20:15)
[2018-12-28] MEDS: Glycopyrrolate 15.6 MCG Cap.W.Dev Kit of 6 IH SCH ×2 (08:46→20:15)
[2018-12-28] MEDS: Folic Acid 1 MG Tab PO SCH (09:20)
[2018-12-28] MEDS: Remove Patch*NICOTINE TRDERM SCH (09:21)
[2018-12-28] MEDS: Nicotine 21 MG/24 Hr Patch TRDERM SCH (09:21)
[2018-12-28] MEDS: Enoxaparin 40 MG/0.4 ML Syringe SUBCUT SCH (09:21)
[2018-12-28] MEDS: ClonazePAM 1 MG Tab PO SCH ×3 (09:21→20:07)
[2018-12-28] MEDS: Venlafaxine 75 MG Cap.ER PO SCH (09:21)
[2018-12-28] MEDS: Thiamine 100 MG Tab PO SCH (09:22)
[2018-12-28] MEDS: Mupirocin Oint 22 GM Tube TOP SCH ×3 (09:25→20:05)
[2018-12-28] MEDS: busPIRone 5 MG Tab PO SCH ×2 (10:58→20:07)
[2018-12-28] MEDS ORDERED: Magnesium Sulfate/Water 4 GM in Premix Bag 1 BAG IV ONE (12:00)
--- NOTE | 2018-12-28 12:07 | PCM.PN ---
- General Info Date of Service: 12/28/18 Admission Dx/Problem (Free Text): Admission Diagnosis/Problem Admission Diagnosis/Problem COPD, Severe chronic obstructive pulmonary disease Subjective Update: December 28, 2018 Patient continues to improve and had an uneventful night. She is down to clonazepam 1 mg 3 times a day. She did receive some lorazepam last night but slept the entire night. December 27, 2018 Patient did well overnight in regards to her withdrawal symptoms. She did not need any more as needed lorazepam. She also has continued to improve in regards to her respiratory status. White count has come down overnight. December 26, 2018 Patient had an improvement overnight in regards to her pulmonary function. She is less wheezy and having less shortness of breath. Unfortunately, after withdrawing from her methamphetamine use she has had increasing anxiety. She was given 1 mg of lorazepam IV overnight 2, but her anxiety has progressively worsened as morning. Because of the worsening anxiety and withdrawal symptoms a CIWA protocol was started and patient was transferred to the ICU. - Review of Systems General: Reports: No Symptoms HEENT: Reports: No Symptoms Pulmonary: Reports: Cough, Wheezing Cardiovascular: Reports: No Symptoms. Denies: Chest Pain, Edema Gastrointestinal: Reports: No Symptoms. Denies: Diarrhea - Patient Data Vitals - Most Recent: Last Vital Signs Temp 97.7 F 12/28/18 09:21 Pulse 109 H 12/28/18 11:01 Resp 24 H 12/28/18 11:01 BP 118/67 12/28/18 11:01 Pulse Ox 99 12/28/18 11:01 Weight - Most Recent: 127 lb 1.6 oz I&O - Last 24 Hours: Intake & Output 12/27/18 12/28/18 12/28/18 22:59 06:59 14:59 Intake Total 3620 2312 660 Balance 3620 2312 660 Lab Results Last 24 Hours: Laboratory Results - last 24 hr 12/27/18 12/28/18 12/28/18 Range/Units 15:31 04:33 04:33 WBC 8.76 (3.98-10.04) K/mm3 RBC 3.85 L (3.98-5.22) M/mm3 Hgb 11.7 (11.2-15.7) gm/L Hct 35.5 (34.1-44.9) % MCV 92.2 (79.4-94.8) fl MCH 30.4 (25.6-32.2) pg MCHC 33.0 (32.2-35.5) g/dl RDW Std Deviation 46.2 (36.4-46.3) fL Plt Count 331 (182-369) K/mm3 MPV 9.1 L (9.4-12.3) fl Neut % (Auto) 54.4 (34.0-71.1) % Lymph % (Auto) 33.7 (19.3-51.7) % [place] % (Auto) 8.1 (4.7-12.5) % Eos % (Auto) 3.4 (0.7-5.8) Baso % (Auto) 0.2 (0.1-1.2) % Neut # (Auto) 4.76 (1.56-6.13) K/mm3 Lymph # (Auto) 2.95 (1.18-3.74) K/mm3 [place] # (Auto) 0.71 H (0.24-0.36) K/mm3 Eos # (Auto) 0.30 (0.04-0.36) K/mm3 Baso # (Auto) 0.02 (0.01-0.08) K/mm3 Manual Slide Review Normal smear Sodium 141 (136-145) mEq/L Potassium 3.5 (3.5-5.1) mEq/L Chloride 106 (98-107) mEq/L Carbon Dioxide 28 (21-32) mEq/L Anion Gap 10.5 (5-15) BUN 12 (7-18) mg/dL Creatinine 0.6 (0.55-1.02) mg/dL Est Cr Clr Drug Dosing 101.00 mL/min Estimated GFR (MDRD) > 60 (>60) mL/min BUN/Creatinine Ratio 20.0 H (14-18) Glucose 87 (74-106) mg/dL Calcium 8.3 L (8.5-10.1) mg/dL Magnesium 1.5 L (1.8-2.4) mg/dl Total Bilirubin 0.2 (0.2-1.0) mg/dL AST 14 L (15-37) U/L ALT 42 (14-59) U/L Alkaline Phosphatase 59 (46-116) U/L Total Protein 5.1 L (6.4-8.2) g/dl Albumin 2.5 L (3.4-5.0) g/dl Globulin 2.6 gm/dL Albumin/Globulin Ratio 1.0 (1-2) Vancomycin Trough 5.8 L (10.0-20.0) Wojciech Results Last 24 Hours: Microbiology 12/25/18 19:28 Aerobic Blood Culture - Preliminary Blood - Venous NO GROWTH AFTER 2 DAYS Anaerobic Blood Culture - Preliminary NO GROWTH AFTER 2 DAYS 12/25/18 19:24 Aerobic Blood Culture - Preliminary Blood - Venous - Lab Draw NO GROWTH AFTER 2 DAYS Anaerobic Blood Culture - Preliminary NO GROWTH AFTER 2 DAYS Med Orders - Current: Current Medications Acetaminophen (Tylenol) 650 mg PO Q4H PRN PRN Reason: Pain (Mild 1-3)/fever Last Admin: 12/27/18 17:33 Dose: 650 mg Albuterol (Proventil Neb Soln) 2.5 mg NEB Q4HRRT PRN PRN Reason: Dyspnea Last Admin: 12/28/18 06:40 Dose: 2.5 mg Albuterol (Proventil Hfa) 0 gm INH Q4H PRN PRN Reason: Dyspnea Albuterol/Ipratropium (Duoneb 3.0-0.5 Mg/3 Ml) 3 ml NEB Q6HRRT PRN PRN Reason: Dyspnea Bisacodyl (Dulcolax) 5 mg PO DAILY PRN PRN Reason: Constipation Last Admin: 12/27/18 17:24 Dose: 5 mg Buspirone HCl (Buspar) 7.5 mg PO BID [facility] Last Admin: 12/28/18 10:58 Dose: 7.5 mg Clonazepam (Klonopin) 1 mg PO TID [facility] Last Admin: 12/28/18 09:21 Dose: 1 mg Diphenhydramine HCl (Benadryl) 25 mg PO Q4H PRN PRN Reason: Itching Docusate Sodium (Colace) 100 mg PO BID PRN PRN Reason: Constipation Enoxaparin Sodium (Lovenox) 40 mg SUBCUT DAILY [facility] Last Admin: 12/28/18 09:21 Dose: 40 mg Glycopyrrolate (Seebri Neohaler) 15.6 mcg IH BID [facility] Last Admin: 12/28/18 08:46 Dose: 1 cap Vancomycin HCl 1 gm/ Sodium (Chloride) 250 mls @ 250 mls/hr IV Q8H [facility] Last Admin: 12/28/18 10:20 Dose: 250 mls/hr Magnesium Sulfate 4 gm/ Premix 100 mls @ 25 mls/hr IV ONETIME ONE Stop: 12/28/18 12:01 Lorazepam (Ativan) 1 mg IV Q6H PRN PRN Reason: Anxiety Last Admin: 12/26/18 05:36 Dose: 1 mg Lorazepam (Ativan) 0 mg IV ASDIRECTED [facility]; Protocol Last Admin: 12/27/18 17:27 Dose: 2 mg Miscellaneous Information (Remove Patch) 1 ea TRDERM DAILY [facility] Last Admin: 12/28/18 09:21 Dose: 1 ea Mupirocin (Bactroban Oint) 0 gm TOP TID [facility] Last Admin: 12/28/18 09:25 Dose: 1 applic Nicotine (Habitrol) 21 mg TRDERM DAILY [facility] Last Admin: 12/28/18 09:21 Dose: 21 mg Ondansetron HCl (Zofran Odt) 4 mg PO Q6H PRN PRN Reason: nausea, able to take PO Pantoprazole Sodium (Protonix) 40 mg PO DAILY@0700 [facility] Last Admin: 12/28/18 06:30 Dose: 40 mg Prednisone (Prednisone) 40 mg PO WITHBREAKFAST [facility] Last Admin: 12/28/18 06:30 Dose: 40 mg Thiamine HCl (Vitamin B-1) 100 mg PO DAILY [facility] Last Admin: 12/28/18 09:22 Dose: 100 mg Vancomycin HCl (Pharmacy To Dose - Vancomycin) 1 dose .XX ASDIRECTED [facility] Venlafaxine HCl (Effexor Xr) 75 mg PO DAILY [facility] Last Admin: 12/28/18 09:21 Dose: 75 mg Discontinued Medications Albuterol/Ipratropium (Duoneb 3.0-0.5 Mg/3 Ml) 3 ml NEB ONETIME ONE Stop: 12/25/18 04:43 Last Admin: 12/25/18 04:58 Dose: 3 ml Albuterol/Ipratropium (Duoneb 3.0-0.5 Mg/3 Ml) 3 ml NEB Q4HRRT [facility] Albuterol/Ipratropium (Duoneb 3.0-0.5 Mg/3 Ml) 3 ml NEB Q4HRRT [facility] Last Admin: 12/25/18 18:00 Dose: 3 ml Albuterol/Ipratropium (Duoneb 3.0-0.5 Mg/3 Ml) 3 ml NEB QIDRT [facility] Last Admin: 12/27/18 09:59 Dose: 3 ml Bacitracin (Bacitracin Oint) 0 gm TOP TID [facility] Last Admin: 12/26/18 09:23 Dose: 1 applic Clonazepam (Klonopin) 2 mg PO TID [facility] Last Admin: 12/26/18 21:21 Dose: 2 mg Folic Acid (Folic Acid) 1 mg PO DAILY [facility] Stop: 12/28/18 09:01 Last Admin: 12/28/18 09:20 Dose: 1 mg Dextrose/Sodium Chloride (Dextrose 5%-Normal Saline) 1,000 mls @ 250 mls/hr IV ASDIRECTED [facility] Stop: 12/25/18 12:45 Last Admin: 12/25/18 10:48 Dose: 250 mls/hr Promethazine HCl 25 mg/ Sodium (Chloride) 51 mls @ 100 mls/hr IV ONETIME ONE Stop: 12/25/18 05:13 Last Admin: 12/25/18 05:11 Dose: 100 mls/hr Lactated Ringer's (Ringers, Lactated) 1,000 mls @ 125 mls/hr IV ASDIRECTED [facility] Last Admin: 12/28/18 03:54 Dose: 125 mls/hr Vancomycin HCl 0.75 gm/ Sodium (Chloride) 250 mls @ 166.667 mls/hr IV ONETIME ONE Stop: 12/25/18 21:29 Last Admin: 12/25/18 20:30 Dose: 166.667 mls/hr Vancomycin HCl 0.75 gm/ Sodium (Chloride) 250 mls @ 250 mls/hr IV Q8H [facility] Last Admin: 12/26/18 04:26 Dose: 250 mls/hr Vancomycin HCl 0.75 gm/ Sodium (Chloride) 250 mls @ 250 mls/hr IV Q12H [facility] Last Admin: 12/27/18 17:26 Dose: Not Given Vancomycin HCl 1 gm/ Sodium (Chloride) 250 mls @ 250 mls/hr IV Q8H [facility] Last Admin: 12/28/18 02:12 Dose: Not Given Influenza Virus Vaccine (Pharmacy To Dose - Influenza Vaccine) 1 each IM ONETIME ONE Stop: 12/25/18 19:54 Influenza Virus Vaccine (Fluzone Quad 0255-9405 Syringe) 60 mcg IM .ONCE ONE Stop: 12/26/18 09:01 Last Admin: 12/26/18 12:54 Dose: Not Given Lorazepam (Ativan) 1 mg IVPUSH ONETIME ONE Stop: 12/25/18 04:44 Last Admin: 12/25/18 04:55 Dose: 1 mg Lorazepam (Ativan) 1 mg IVPUSH ONETIME ONE Stop: 12/25/18 06:47 Last Admin: 12/25/18 06:47 Dose: 1 mg Lorazepam (Ativan) Confirm Administered Dose 2 mg .ROUTE .STK-MED ONE Stop: 12/25/18 06:46 Last Admin: 12/25/18 06:48 Dose: Not Given Lorazepam (Ativan) 1 mg IVPUSH ONETIME ONE Stop: 12/26/18 10:02 Last Admin: 12/26/18 10:09 Dose: 1 mg Methylprednisolone Sodium Succinate (Solu-Medrol) 40 mg IVPUSH Q6H [facility] Last Admin: 12/27/18 08:10 Dose: 40 mg Multivitamins (Thera) 1 each PO ONETIME ONE Stop: 12/26/18 10:40 Last Admin: 12/26/18 12:21 Dose: 1 each Pantoprazole Sodium (Protonix Iv) 40 mg IV DAILY [facility] Last Admin: 12/27/18 08:41 Dose: 40 mg - Exam General: Alert, Oriented HEENT: Pupils Equal, Pupils Reactive Neck: Supple Lungs: Normal Respiratory Effort, Wheezing GI/Abdominal Exam: Normal Bowel Sounds, Soft, Non-Tender, No Distention Extremities: Normal Inspection, No Pedal Edema Skin: Warm - Problem List & Annotations (1) Methamphetamine abuse SNOMED Code(s): 665280314 Code(s): F15.10 - OTHER STIMULANT ABUSE, UNCOMPLICATED Status: Acute Current Visit: Yes (2) COPD exacerbation SNOMED Code(s): 768988901 Code(s): J44.1 - CHRONIC OBSTRUCTIVE PULMONARY DISEASE W (ACUTE) EXACERBATION Status: Acute Current Visit: Yes (3) Wound, open, forehead SNOMED Code(s): 489401481 Code(s): S01.80XA - UNSPECIFIED OPEN WOUND OF OTHER PART OF HEAD, INIT ENCNTR Status: Acute Current Visit: No Qualifiers: Encounter type: initial encounter Qualified Code(s): S01.80XA - Unspecified open wound of other part of head, initial encounter (4) Hx of awlxw-[id number] deficiency SNOMED Code(s): 365425220 Code(s): Z86.39 - PERSONAL HISTORY OF ENDO, NUTRITIONAL AND METABOLIC DISEASE Status: Chronic Current Visit: No - Problem List Review Problem List Initiated/Reviewed/Updated: Yes - My Orders Last 24 Hours: My Active Orders 12/27/18 15:18 RT Post Treatment Assessment [RC] Click to Edit RT Pre-Treatment Assessment [RC] Click to Edit Albuterol/Ipratropium [DuoNeb 3.0-0.5 MG/3 ML] 3 ml NEB Q6HRRT PRN 12/27/18 15:19 RT Aerosol Therapy [RC] ASDIRECTED 12/27/18 15:26 RT Aerosol Therapy [RC] ASDIRECTED Albuterol [Proventil HFA] 0 gm INH Q4H PRN 12/27/18 15:30 RT Post Treatment Assessment [RC] Click to Edit RT Pre-Treatment Assessment [RC] Click to Edit 12/27/18 16:42 Consult for Substance Abuse [CONS] Routine 12/27/18 21:00 Glycopyrrolate [Seebri Neohaler] 15.6 mcg IH BID 12/28/18 02:00 Vancomycin 1 gm Sodium Chloride 0.9% [Normal Saline] 250 ml IV Q8H 12/28/18 07:00 Pantoprazole [ProTONIX] 40 mg PO DAILY@0700 predniSONE 40 mg PO WITHBREAKFAST 12/28/18 07:45 Patient Status [ADT] Routine 12/28/18 12:00 Magnesium Sulfate/Water [Magnesium Sulfate 4 GM in Water 100 ML] 4 gm Premix Bag 1 bag IV ONETIME 12/29/18 05:11 CMP [COMPREHENSIVE METABOLIC PN,CMP] [CHEM] AM MAGNESIUM [CHEM] AM PHOSPHORUS [CHEM] AM - Plan Plan:: COPD exacerbation - Place patient on inpatient status secondary to her withdrawal from methamphetamine - Continuous pulse oximetry and FiO2 per nasal cannula to keep SPO2 above 92% . - Continue DuoNeb every 6 hours when necessary and add Spiriva and albuterol HFA when necessary. - Albuterol nebulizer every 4 hours when necessary. - Continue oral prednisone. Methamphetamine abuse - Withdrawal symptoms have improved. - Transfer to [facility] - Decrease Clonazepam to 1 mg 3 times a day for anxiety and withdrawal symptoms - [facility] protocol - Consult case management/social work/behavioral health - Patient has a consult scheduled today with psychiatry. Multiple superficial excoriations secondary to picking secondary to above - Topical Bactroban ointment to be applied to each. - And continue vancomycin overnight. Hepatitis C - Patient states that this is a chronic condition. History of alpha-1 antitrypsin deficiency - Encourage smoking cessation - Start nicotine patch VTE prophylaxis with Lovenox 40 mg subcutaneous
[2018-12-28] MEDS: Vancomycin 1 GM, Vancomycin 500 MG in Sodium Chloride 0.9% 500 ML IV SCH (18:19)
[2018-12-29] MEDS: Vancomycin 1 GM, Vancomycin 500 MG in Sodium Chloride 0.9% 500 ML IV SCH (01:22)
[2018-12-29] MEDS: predniSONE 20 MG Tab PO SCH (06:26)
[2018-12-29] MEDS: Pantoprazole 40 MG Tab.CR PO SCH (06:26)
[2018-12-29] MEDS ORDERED: Magnesium Sulfate/Water 4 GM in Premix Bag 1 BAG IV ONE (07:30)
[2018-12-29] MEDS: Albuterol/Ipratropium 3.0-0.5 MG/3 ML Neb Soln NEB PRN (08:26)
[2018-12-29] MEDS: Glycopyrrolate 15.6 MCG Cap.W.Dev Kit of 6 IH SCH ×2 (08:26→20:23)
[2018-12-29] MEDS: Venlafaxine 75 MG Cap.ER PO SCH (09:02)
[2018-12-29] MEDS: Enoxaparin 40 MG/0.4 ML Syringe SUBCUT SCH (09:02)
[2018-12-29] MEDS: ClonazePAM 1 MG Tab PO SCH ×3 (09:02→20:52)
[2018-12-29] MEDS: busPIRone 5 MG Tab PO SCH ×2 (09:02→20:52)
[2018-12-29] MEDS: Thiamine 100 MG Tab PO SCH (09:03)
[2018-12-29] MEDS: Remove Patch*NICOTINE TRDERM SCH (09:03)
[2018-12-29] MEDS: Nicotine 21 MG/24 Hr Patch TRDERM SCH (09:03)
[2018-12-29] MEDS: Mupirocin Oint 22 GM Tube TOP SCH ×3 (09:58→20:49)
--- NOTE | 2018-12-29 11:22 | PCM.PN ---
- General Info Date of Service: 12/29/18 Admission Dx/Problem (Free Text): Admission Diagnosis/Problem Admission Diagnosis/Problem COPD, Severe chronic obstructive pulmonary disease Subjective Update: December 29, 2018 Patient continues to remain stable. She had another uneventful night and is on clonazepam 1 mg [address] Garsia did add BuSpar yesterday. She continues to cough and has wheezing, but this is her baseline. She is off oxygen. December 28, 2018 Patient continues to improve and had an uneventful night. She is down to clonazepam 1 mg 3 times a day. She did receive some lorazepam last night but slept the entire night. December 27, 2018 Patient did well overnight in regards to her withdrawal symptoms. She did not need any more as needed lorazepam. She also has continued to improve in regards to her respiratory status. White count has come down overnight. December 26, 2018 Patient had an improvement overnight in regards to her pulmonary function. She is less wheezy and having less shortness of breath. Unfortunately, after withdrawing from her methamphetamine use she has had increasing anxiety. She was given 1 mg of lorazepam IV overnight 2, but her anxiety has progressively worsened as morning. Because of the worsening anxiety and withdrawal symptoms a CIWA protocol was started and patient was transferred to the ICU. - Review of Systems General: Reports: No Symptoms HEENT: Reports: No Symptoms Pulmonary: Reports: Cough, Wheezing Cardiovascular: Reports: No Symptoms. Denies: Chest Pain, Palpitations Gastrointestinal: Reports: No Symptoms. Denies: Abdominal Pain, Constipation Skin: Reports: No Symptoms - Patient Data Vitals - Most Recent: Last Vital Signs Temp 97.7 F 12/29/18 08:58 Pulse 115 H 12/29/18 08:58 Resp 22 H 12/29/18 08:58 BP 122/94 H 12/29/18 08:58 Pulse Ox 92 L 12/29/18 08:58 Weight - Most Recent: 125 lb 8 oz I&O - Last 24 Hours: Intake & Output 12/28/18 12/29/18 12/29/18 22:59 06:59 14:59 Intake Total 1120 1800 Output Total 1450 Balance 1120 350 Lab Results Last 24 Hours: Laboratory Results - last 24 hr 12/28/18 12/29/18 Range/Units 17:08 04:52 Sodium 136 (136-145) mEq/L Potassium 3.8 (3.5-5.1) mEq/L Chloride 102 (98-107) mEq/L Carbon Dioxide 28 (21-32) mEq/L Anion Gap 9.8 (5-15) BUN 18 (7-18) mg/dL Creatinine 0.6 (0.55-1.02) mg/dL Est Cr Clr Drug Dosing 101.00 mL/min Estimated GFR (MDRD) > 60 (>60) mL/min BUN/Creatinine Ratio 30.0 H (14-18) Glucose 92 (74-106) mg/dL Calcium 8.1 L (8.5-10.1) mg/dL Phosphorus 3.7 (2.6-4.7) mg/dL Magnesium 1.7 L (1.8-2.4) mg/dl Total Bilirubin 0.2 (0.2-1.0) mg/dL AST 29 (15-37) U/L ALT 59 (14-59) U/L Alkaline Phosphatase 65 (46-116) U/L Total Protein 5.6 L (6.4-8.2) g/dl Albumin 2.5 L (3.4-5.0) g/dl Globulin 3.1 gm/dL Albumin/Globulin Ratio 0.8 L (1-2) Vancomycin Trough 11.5 (10.0-20.0) Wojciech Results Last 24 Hours: Microbiology 12/25/18 19:28 Aerobic Blood Culture - Preliminary Blood - Venous NO GROWTH AFTER 3 DAYS Anaerobic Blood Culture - Preliminary NO GROWTH AFTER 3 DAYS 12/25/18 19:24 Aerobic Blood Culture - Preliminary Blood - Venous - Lab Draw NO GROWTH AFTER 3 DAYS Anaerobic Blood Culture - Preliminary NO GROWTH AFTER 3 DAYS Med Orders - Current: Current Medications Acetaminophen (Tylenol) 650 mg PO Q4H PRN PRN Reason: Pain (Mild 1-3)/fever Last Admin: 12/27/18 17:33 Dose: 650 mg Albuterol (Proventil Neb Soln) 2.5 mg NEB Q4HRRT PRN PRN Reason: Dyspnea Last Admin: 12/28/18 20:15 Dose: 2.5 mg Albuterol (Proventil Hfa) 0 gm INH Q4H PRN PRN Reason: Dyspnea Albuterol/Ipratropium (Duoneb 3.0-0.5 Mg/3 Ml) 3 ml NEB Q6HRRT PRN PRN Reason: Dyspnea Last Admin: 12/29/18 08:26 Dose: 3 ml Bisacodyl (Dulcolax) 5 mg PO DAILY PRN PRN Reason: Constipation Last Admin: 12/27/18 17:24 Dose: 5 mg Buspirone HCl (Buspar) 7.5 mg PO BID [facility] Last Admin: 12/29/18 09:02 Dose: 7.5 mg Clonazepam (Klonopin) 1 mg PO TID [facility] Last Admin: 12/29/18 09:02 Dose: 1 mg Diphenhydramine HCl (Benadryl) 25 mg PO Q4H PRN PRN Reason: Itching Docusate Sodium (Colace) 100 mg PO BID PRN PRN Reason: Constipation Enoxaparin Sodium (Lovenox) 40 mg SUBCUT DAILY [facility] Last Admin: 12/29/18 09:02 Dose: 40 mg Glycopyrrolate (Seebri Neohaler) 15.6 mcg IH BID [facility] Last Admin: 12/29/18 08:26 Dose: 1 cap Magnesium Sulfate 4 gm/ Premix 100 mls @ 25 mls/hr IV ONETIME ONE Stop: 12/29/18 11:29 Last Admin: 12/29/18 09:00 Dose: 25 mls/hr Lorazepam (Ativan) 1 mg IV Q6H PRN PRN Reason: Anxiety Last Admin: 12/26/18 05:36 Dose: 1 mg Lorazepam (Ativan) 0 mg IV ASDIRECTED [facility]; Protocol Last Admin: 12/27/18 17:27 Dose: 2 mg Miscellaneous Information (Remove Patch) 1 ea TRDERM DAILY [facility] Last Admin: 12/29/18 09:03 Dose: 1 ea Mupirocin (Bactroban Oint) 0 gm TOP TID [facility] Last Admin: 12/29/18 09:58 Dose: 1 applic Nicotine (Habitrol) 21 mg TRDERM DAILY [facility] Last Admin: 12/29/18 09:03 Dose: 21 mg Ondansetron HCl (Zofran Odt) 4 mg PO Q6H PRN PRN Reason: nausea, able to take PO Pantoprazole Sodium (Protonix) 40 mg PO DAILY@0700 [facility] Last Admin: 12/29/18 06:26 Dose: 40 mg Prednisone (Prednisone) 40 mg PO WITHBREAKFAST [facility] Last Admin: 12/29/18 06:26 Dose: 40 mg Thiamine HCl (Vitamin B-1) 100 mg PO DAILY [facility] Last Admin: 12/29/18 09:03 Dose: 100 mg Venlafaxine HCl (Effexor Xr) 75 mg PO DAILY [facility] Last Admin: 12/29/18 09:02 Dose: 75 mg Discontinued Medications Albuterol/Ipratropium (Duoneb 3.0-0.5 Mg/3 Ml) 3 ml NEB ONETIME ONE Stop: 12/25/18 04:43 Last Admin: 12/25/18 04:58 Dose: 3 ml Albuterol/Ipratropium (Duoneb 3.0-0.5 Mg/3 Ml) 3 ml NEB Q4HRRT [facility] Albuterol/Ipratropium (Duoneb 3.0-0.5 Mg/3 Ml) 3 ml NEB Q4HRRT [facility] Last Admin: 12/25/18 18:00 Dose: 3 ml Albuterol/Ipratropium (Duoneb 3.0-0.5 Mg/3 Ml) 3 ml NEB QIDRT [facility] Last Admin: 12/27/18 09:59 Dose: 3 ml Bacitracin (Bacitracin Oint) 0 gm TOP TID [facility] Last Admin: 12/26/18 09:23 Dose: 1 applic Clonazepam (Klonopin) 2 mg PO TID [facility] Last Admin: 12/26/18 21:21 Dose: 2 mg Folic Acid (Folic Acid) 1 mg PO DAILY [facility] Stop: 12/28/18 09:01 Last Admin: 12/28/18 09:20 Dose: 1 mg Dextrose/Sodium Chloride (Dextrose 5%-Normal Saline) 1,000 mls @ 250 mls/hr IV ASDIRECTED [facility] Stop: 12/25/18 12:45 Last Admin: 12/25/18 10:48 Dose: 250 mls/hr Promethazine HCl 25 mg/ Sodium (Chloride) 51 mls @ 100 mls/hr IV ONETIME ONE Stop: 12/25/18 05:13 Last Admin: 12/25/18 05:11 Dose: 100 mls/hr Lactated Ringer's (Ringers, Lactated) 1,000 mls @ 125 mls/hr IV ASDIRECTED [facility] Last Admin: 12/28/18 03:54 Dose: 125 mls/hr Vancomycin HCl 0.75 gm/ Sodium (Chloride) 250 mls @ 166.667 mls/hr IV ONETIME ONE Stop: 12/25/18 21:29 Last Admin: 12/25/18 20:30 Dose: 166.667 mls/hr Vancomycin HCl 0.75 gm/ Sodium (Chloride) 250 mls @ 250 mls/hr IV Q8H [facility] Last Admin: 12/26/18 04:26 Dose: 250 mls/hr Vancomycin HCl 0.75 gm/ Sodium (Chloride) 250 mls @ 250 mls/hr IV Q12H [facility] Last Admin: 12/27/18 17:26 Dose: Not Given Vancomycin HCl 1 gm/ Sodium (Chloride) 250 mls @ 250 mls/hr IV Q8H [facility] Last Admin: 12/28/18 02:12 Dose: Not Given Vancomycin HCl 1 gm/ Sodium (Chloride) 250 mls @ 250 mls/hr IV Q8H [facility] Last Admin: 12/28/18 10:20 Dose: 250 mls/hr Magnesium Sulfate 4 gm/ Premix 100 mls @ 25 mls/hr IV ONETIME ONE Stop: 12/28/18 12:01 Last Admin: 12/28/18 12:31 Dose: 25 mls/hr Vancomycin HCl 1 gm/Vancomycin HCl 500 mg/ Sodium Chloride 500 mls @ 333.333 mls/hr IV Q8H [facility] Last Admin: 12/29/18 01:22 Dose: 333.333 mls/hr Vancomycin HCl 1 gm/ Sodium (Chloride) 250 mls @ 250 mls/hr IV Q8H [facility] Influenza Virus Vaccine (Pharmacy To Dose - Influenza Vaccine) 1 each IM ONETIME ONE Stop: 12/25/18 19:54 Influenza Virus Vaccine (Fluzone Quad [id number] Syringe) 60 mcg IM .ONCE ONE Stop: 12/26/18 09:01 Last Admin: 12/26/18 12:54 Dose: Not Given Lorazepam (Ativan) 1 mg IVPUSH ONETIME ONE Stop: 12/25/18 04:44 Last Admin: 12/25/18 04:55 Dose: 1 mg Lorazepam (Ativan) 1 mg IVPUSH ONETIME ONE Stop: 12/25/18 06:47 Last Admin: 12/25/18 06:47 Dose: 1 mg Lorazepam (Ativan) Confirm Administered Dose 2 mg .ROUTE .STK-MED ONE Stop: 12/25/18 06:46 Last Admin: 12/25/18 06:48 Dose: Not Given Lorazepam (Ativan) 1 mg IVPUSH ONETIME ONE Stop: 12/26/18 10:02 Last Admin: 12/26/18 10:09 Dose: 1 mg Methylprednisolone Sodium Succinate (Solu-Medrol) 40 mg IVPUSH Q6H [facility] Last Admin: 12/27/18 08:10 Dose: 40 mg Multivitamins (Thera) 1 each PO ONETIME ONE Stop: 12/26/18 10:40 Last Admin: 12/26/18 12:21 Dose: 1 each Pantoprazole Sodium (Protonix Iv) 40 mg IV DAILY [facility] Last Admin: 12/27/18 08:41 Dose: 40 mg Vancomycin HCl (Pharmacy To Dose - Vancomycin) 1 dose .XX ASDIRECTED [facility] - Exam Quality Assessment: No: Supplemental Oxygen General: Alert, Oriented, Cooperative HEENT: Pupils Equal Neck: Supple Lungs: Normal Respiratory Effort, Wheezing Cardiovascular: Regular Rate, Regular Rhythm GI/Abdominal Exam: Normal Bowel Sounds, Soft, Non-Tender, No Distention Back Exam: Normal Inspection Extremities: Normal Inspection, Non-Tender, No Pedal Edema Skin: Warm, Dry, Other (Continuing to improve her excoriations and soft tissue infections.) - Problem List & Annotations (1) Methamphetamine abuse SNOMED Code(s): 055121707 Code(s): F15.10 - OTHER STIMULANT ABUSE, UNCOMPLICATED Status: Acute Current Visit: Yes (2) COPD exacerbation SNOMED Code(s): 175133333 Code(s): J44.1 - CHRONIC OBSTRUCTIVE PULMONARY DISEASE W (ACUTE) EXACERBATION Status: Acute Current Visit: Yes (3) Wound, open, forehead SNOMED Code(s): 855017019 Code(s): S01.80XA - UNSPECIFIED OPEN WOUND OF OTHER PART OF HEAD, INIT ENCNTR Status: Acute Current Visit: No Qualifiers: Encounter type: initial encounter Qualified Code(s): S01.80XA - Unspecified open wound of other part of head, initial encounter (4) Hx of fueod-1-aoophumrbhz deficiency SNOMED Code(s): 657089157 Code(s): Z86.39 - PERSONAL HISTORY OF ENDO, NUTRITIONAL AND METABOLIC DISEASE Status: Chronic Current Visit: No - Problem List Review Problem List Initiated/Reviewed/Updated: Yes - My Orders Last 24 Hours: My Active Orders 12/29/18 07:30 Magnesium Sulfate/Water [Magnesium Sulfate 4 GM in Water 100 ML] 4 gm Premix Bag 1 bag IV ONETIME - Plan Plan:: COPD exacerbation - Place patient on inpatient status secondary to her withdrawal from methamphetamine - Periodic pulse oximetry and FiO2 per nasal cannula to keep SPO2 above 92%. Currently on room air - Continue DuoNeb every 6 hours when necessary and add Spiriva and albuterol HFA when necessary. - Albuterol nebulizer every 4 hours when necessary. - Continue oral prednisone. Methamphetamine abuse - Withdrawal symptoms have improved. - BuSpar 7.5 mg twice a day was added by Dr. Garsia - Clonazepam to 1 mg 3 times a day for anxiety and withdrawal symptoms - CIWA protocol Multiple superficial excoriations secondary to picking secondary to above - Topical Bactroban ointment to be applied to each. - DC vancomycin overnight. Hypomagnesemia - Replace magnesium today and recheck in the morning. Hepatitis C - Patient states that this is a chronic condition. History of alpha-1 antitrypsin deficiency - Encourage smoking cessation - Start nicotine patch VTE prophylaxis with Lovenox 40 mg subcutaneous Discharge pending due to placement
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
[2018-12-30] MEDS: predniSONE 20 MG Tab PO SCH (06:52)
[2018-12-30] MEDS: Pantoprazole 40 MG Tab.CR PO SCH (06:53)
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
[2018-12-30] MEDS: Glycopyrrolate 15.6 MCG Cap.W.Dev Kit of 6 IH SCH ×2 (08:29→20:46)
[2018-12-30] MEDS: Albuterol/Ipratropium 3.0-0.5 MG/3 ML Neb Soln NEB PRN ×2 (08:29→21:15)
[2018-12-30] MEDS: Remove Patch*NICOTINE TRDERM SCH (09:21)
[2018-12-30] MEDS: Venlafaxine 75 MG Cap.ER PO SCH (09:23)
[2018-12-30] MEDS: ClonazePAM 1 MG Tab PO SCH ×3 (09:23→20:59)
[2018-12-30] MEDS: Nicotine 21 MG/24 Hr Patch TRDERM SCH (09:24)
[2018-12-30] MEDS: Enoxaparin 40 MG/0.4 ML Syringe SUBCUT SCH (09:24)
[2018-12-30] MEDS: busPIRone 5 MG Tab PO SCH ×2 (09:25→20:58)
[2018-12-30] MEDS: Mupirocin Oint 22 GM Tube TOP SCH ×3 (09:26→21:00)
[2018-12-30] MEDS: Thiamine 100 MG Tab PO SCH (09:28)
--- NOTE | 2018-12-30 11:08 | PCM.DCSUM1 ---
Discharge Summary - Hospital Course HPI Initial Comments: 43-year-old female admitted through the emergency room after being brought in by [facility]. History mainly obtained through emergency room records since she was given lorazepam in the emergency room for sedation. Patient called the [facility] ambulance service secondary to difficulty breathing. Patient has a history of alpha-1 antitrypsin deficiency, but continues to smoke. She has severe COPD and is on triple therapy at home. In the ambulance patient was given an albuterol treatment and use of a CPAP machine in route to the hospital. Patient exhibited respiratory distress on arrival and was only able to speak 1 or 2 word sentences. Apparently she had recently restarted methamphetamines. I did obtain from her the last use of methamphetamines was yesterday. She has begun picking at her skin particularly her mid forehead.Patient was exhibiting choreoathetoid type movements of her upper extremities per emergency room physician. Patient was on a course of doxycycline for unknown cause. She completed all but one pill of the prescription. Now patient is resting comfortably in bed. She has 2 L oxygen via nasal cannula. She had audible wheezing when speaking to her. She only answered a few questions and appeared tired. Brief History: She was admitted for a COPD exacerbation and methamphetamine abuse. She improved rapidly for her COPD exacerbation using usual care. Unfortunately she did have significant withdrawal symptoms of her methamphetamines by day 2 and required transfer to the ICU, IV Ativan, and was placed on a scheduled dose of clonazepam 2 mg 3 times a day. After one day she was able to decrease the clonazepam 1 mg 3 times a day and has been well- maintained on that since day 3. Patient also was started on vancomycin on day of admission because of her history of methamphetamine abuse, injection drug use , and facial superficial skin infection. By day 3 we were able to DC vancomycin and only use topical Bactroban. She has had evaluation by wound care and they recommended only topical treatment. Patient has done well overall and is ready to be placed at the [facility]. - Discharge Data Discharge Date: 12/30/18 Discharge Disposition: DC/Tfer to [facility]Unit [facility] Condition: Good - Discharge Diagnosis/Problem(s) (1) Methamphetamine abuse SNOMED Code(s): 174053160 ICD Code: F15.10 - OTHER STIMULANT ABUSE, UNCOMPLICATED Status: Acute Current Visit: Yes (2) COPD exacerbation SNOMED Code(s): 862983212 ICD Code: J44.1 - CHRONIC OBSTRUCTIVE PULMONARY DISEASE W (ACUTE) EXACERBATION Status: Acute Current Visit: Yes (3) Wound, open, forehead SNOMED Code(s): 256211621 ICD Code: S01.80XA - UNSPECIFIED OPEN WOUND OF OTHER PART OF HEAD, INIT ENCNTR Status: Acute Current Visit: No Qualifiers: Encounter type: initial encounter Qualified Code(s): S01.80XA - Unspecified open wound of other part of head, initial encounter (4) Hx of zgnnv-1-mbowoqqkoya deficiency SNOMED Code(s): 531463682 ICD Code: Z86.39 - PERSONAL HISTORY OF ENDO, NUTRITIONAL AND METABOLIC DISEASE Status: Chronic Current Visit: No - Patient Summary/Data Consults: Consultations 12/25/18 09:31 Respiratory Care Assess and Treatment [CONS] Routine 12/25/18 17:59 Consult to Physical Therapy [PT Evaluation and Treatment] [CONS] Routine 12/26/18 14:45 Consult to Case Management/Bending Press Operator [CONS] Routine 12/27/18 10:00 Consult to Physician [CONS] Routine 12/27/18 16:42 Consult for Substance Abuse [CONS] Routine 12/28/18 10:25 Spiritual Care Follow Up [CONS] Routine - Patient Instructions Diet: Usual Diet as Tolerated Activity: As Tolerated Driving: Do Not Drive Showering/Bathing: May Shower Wound/Incision Care: Change Dressing Daily Notify Provider of: Fever, Swelling and Redness - Discharge Plan *PRESCRIPTION DRUG MONITORING PROGRAM REVIEWED*: Not Applicable *COPY OF PRESCRIPTION DRUG MONITORING REPORT IN PATIENT SHER: Not Applicable Prescriptions/Med Rec: busPIRone [Buspar] 7.5 mg PO BID 30 Days #60 tab ClonazePAM [KlonoPIN] 1 mg PO BID #14 tab Home Medications: Home Meds Budesonide/Formoterol Fumarate [Symbicort 160-4.5 Mcg Inhaler] 2 puff INH BID [History] Albuterol Sulfate [Proair Hfa] 2 puff INH QID PRN 12/25/18 [History] Ipratropium/Albuterol Sulfate [Iprat-Albut 0.5-3(2.5) mg/3 ml] 1 vial INH Q4H PRN 12/25/18 [History] Tiotropium [Spiriva HandiHaler] 1 cap INH DAILY 12/25/18 [History] Venlafaxine HCl [Venlafaxine ER] 75 mg PO DAILY 12/25/18 [History] hydrOXYzine pamoate [Hydroxyzine Pamoate] 50 mg PO Q6H PRN 12/25/18 [History] Albuterol [Proventil HFA] 0 gm INH Q4H PRN inhaler 12/30/18 [Rx] Albuterol [Proventil Neb Soln] 2.5 mg NEB Q4HRRT PRN neb 12/30/18 [Rx] Albuterol/Ipratropium [DuoNeb 3.0-0.5 MG/3 ML] 3 ml NEB Q6HRRT PRN neb [Rx] ClonazePAM [KlonoPIN] 1 mg PO BID #14 tab 12/30/18 [Rx] Glycopyrrolate [Seebri Neohaler] 15.6 mcg IH BID inhalant 12/30/18 [Rx] Mupirocin Oint [Bactroban Oint] 0 gm TOP TID tube 12/30/18 [Rx] Nicotine [Habitrol] 21 mg TRDERM DAILY patch 12/30/18 [Rx] Remove Patch 1 ea TRDERM DAILY each 12/30/18 [Rx] Thiamine [Vitamin B-1] 100 mg PO DAILY tablet 12/30/18 [Rx] busPIRone [Buspar] 7.5 mg PO BID 30 Days #60 tab 12/30/18 [Rx] Oxygen Therapy Mode: Room Air Patient Handouts: Chronic Obstructive Pulmonary Disease Exacerbation, Easy-to- Read, Substance Use Disorder and Mental Illness, Recovering From Addiction, Stimulant Use Disorder-Methamphetamines, Steps to Quit Smoking Forms: ED Department Discharge Referrals: PCP,None [Primary Care Provider] - - Discharge Summary/Plan Comment DC Time >30 min.: Yes Discharge Summary/Plan Comment: Patient will be transferred to [facility]. I had a doctor consultation with Dr. Garrett Dao, who accepted the patient. Patient will be transported via [facility]. - General Info Date of Service: 12/30/18 Admission Dx/Problem (Free Text: Admission Diagnosis/Problem Admission Diagnosis/Problem COPD, Severe chronic obstructive pulmonary disease Subjective Update: December 30, 2018 Patient continues to be stable. Another uneventful night. She will be transferred to [facility] today. December 29, 2018 Patient continues to remain stable. She had another uneventful night and is on clonazepam 1 mg [address] Garsia did add BuSpar yesterday. She continues to cough and has wheezing, but this is her baseline. She is off oxygen. December 28, 2018 Patient continues to improve and had an uneventful night. She is down to clonazepam 1 mg 3 times a day. She did receive some lorazepam last night but slept the entire night. December 27, 2018 Patient did well overnight in regards to her withdrawal symptoms. She did not need any more as needed lorazepam. She also has continued to improve in regards to her respiratory status. White count has come down overnight. December 26, 2018 Patient had an improvement overnight in regards to her pulmonary function. She is less wheezy and having less shortness of breath. Unfortunately, after withdrawing from her methamphetamine use she has had increasing anxiety. She was given 1 mg of lorazepam IV overnight 2, but her anxiety has progressively worsened as morning. Because of the worsening anxiety and withdrawal symptoms a CIWA protocol was started and patient was transferred to the ICU. - Review of Systems General: Reports: No Symptoms HEENT: Reports: No Symptoms Pulmonary: Reports: Shortness of Breath, Cough Cardiovascular: Reports: No Symptoms Gastrointestinal: Reports: No Symptoms - Patient Data Vitals - Most Recent: Last Vital Signs Temp 97.5 F 12/30/18 09:15 Pulse 91 12/30/18 09:18 Resp 20 12/30/18 09:15 BP 102/67 12/30/18 09:15 Pulse Ox 92 L 12/30/18 09:15 Weight - Most Recent: 116 lb 1.6 oz I&O - Last 24 hours: Intake & Output 12/29/18 12/30/18 12/30/18 22:59 06:59 14:59 Intake Total 1360 500 Output Total 600 1050 Balance 760 -550 EDMUNDO Results - Last 24 hrs: Microbiology 12/25/18 19:28 Aerobic Blood Culture - Preliminary Blood - Venous NO GROWTH AFTER 4 DAYS Anaerobic Blood Culture - Preliminary NO GROWTH AFTER 4 DAYS 12/25/18 19:24 Aerobic Blood Culture - Preliminary Blood - Venous - Lab Draw NO GROWTH AFTER 4 DAYS Anaerobic Blood Culture - Preliminary NO GROWTH AFTER 4 DAYS Med Orders - Current: Current Medications Acetaminophen (Tylenol) 650 mg PO Q4H PRN PRN Reason: Pain (Mild 1-3)/fever Last Admin: 12/27/18 17:33 Dose: 650 mg Albuterol (Proventil Neb Soln) 2.5 mg NEB Q4HRRT PRN PRN Reason: Dyspnea Last Admin: 12/28/18 20:15 Dose: 2.5 mg Albuterol (Proventil Hfa) 0 gm INH Q4H PRN PRN Reason: Dyspnea Albuterol/Ipratropium (Duoneb 3.0-0.5 Mg/3 Ml) 3 ml NEB Q6HRRT PRN PRN Reason: Dyspnea Last Admin: 12/30/18 08:29 Dose: 3 ml Bisacodyl (Dulcolax) 5 mg PO DAILY PRN PRN Reason: Constipation Last Admin: 12/27/18 17:24 Dose: 5 mg Buspirone HCl (Buspar) 7.5 mg PO BID [facility] Last Admin: 12/30/18 09:25 Dose: 7.5 mg Clonazepam (Klonopin) 1 mg PO TID [facility] Last Admin: 12/30/18 09:23 Dose: 1 mg Diphenhydramine HCl (Benadryl) 25 mg PO Q4H PRN PRN Reason: Itching Docusate Sodium (Colace) 100 mg PO BID PRN PRN Reason: Constipation Enoxaparin Sodium (Lovenox) 40 mg SUBCUT DAILY [facility] Last Admin: 12/30/18 09:24 Dose: 40 mg Glycopyrrolate (Seebri Neohaler) 15.6 mcg IH BID [facility] Last Admin: 12/30/18 08:29 Dose: 1 cap Lorazepam (Ativan) 1 mg IV Q6H PRN PRN Reason: Anxiety Last Admin: 12/26/18 05:36 Dose: 1 mg Lorazepam (Ativan) 0 mg IV ASDIRECTED [facility]; Protocol Last Admin: 12/27/18 17:27 Dose: 2 mg Miscellaneous Information (Remove Patch) 1 ea TRDERM DAILY [facility] Last Admin: 12/30/18 09:21 Dose: 1 ea Mupirocin (Bactroban Oint) 0 gm TOP TID [facility] Last Admin: 12/30/18 09:26 Dose: 1 applic Nicotine (Habitrol) 21 mg TRDERM DAILY [facility] Last Admin: 12/30/18 09:24 Dose: 21 mg Ondansetron HCl (Zofran Odt) 4 mg PO Q6H PRN PRN Reason: nausea, able to take PO Pantoprazole Sodium (Protonix) 40 mg PO DAILY@0700 [facility] Last Admin: 12/30/18 06:53 Dose: 40 mg Prednisone (Prednisone) 40 mg PO WITHBREAKFAST [facility] Last Admin: 12/30/18 06:52 Dose: 40 mg Thiamine HCl (Vitamin B-1) 100 mg PO DAILY [facility] Last Admin: 12/30/18 09:28 Dose: 100 mg Venlafaxine HCl (Effexor Xr) 75 mg PO DAILY [facility] Last Admin: 12/30/18 09:23 Dose: 75 mg Discontinued Medications Albuterol/Ipratropium (Duoneb 3.0-0.5 Mg/3 Ml) 3 ml NEB ONETIME ONE Stop: 12/25/18 04:43 Last Admin: 12/25/18 04:58 Dose: 3 ml Albuterol/Ipratropium (Duoneb 3.0-0.5 Mg/3 Ml) 3 ml NEB Q4HRRT [facility] Albuterol/Ipratropium (Duoneb 3.0-0.5 Mg/3 Ml) 3 ml NEB Q4HRRT [facility] Last Admin: 12/25/18 18:00 Dose: 3 ml Albuterol/Ipratropium (Duoneb 3.0-0.5 Mg/3 Ml) 3 ml NEB QIDRT [facility] Last Admin: 12/27/18 09:59 Dose: 3 ml Bacitracin (Bacitracin Oint) 0 gm TOP TID [facility] Last Admin: 12/26/18 09:23 Dose: 1 applic Clonazepam (Klonopin) 2 mg PO TID [facility] Last Admin: 12/26/18 21:21 Dose: 2 mg Folic Acid (Folic Acid) 1 mg PO DAILY [facility] Stop: 12/28/18 09:01 Last Admin: 12/28/18 09:20 Dose: 1 mg Dextrose/Sodium Chloride (Dextrose 5%-Normal Saline) 1,000 mls @ 250 mls/hr IV ASDIRECTED [facility] Stop: 12/25/18 12:45 Last Admin: 12/25/18 10:48 Dose: 250 mls/hr Promethazine HCl 25 mg/ Sodium (Chloride) 51 mls @ 100 mls/hr IV ONETIME ONE Stop: 12/25/18 05:13 Last Admin: 12/25/18 05:11 Dose: 100 mls/hr Lactated Ringer's (Ringers, Lactated) 1,000 mls @ 125 mls/hr IV ASDIRECTED [facility] Last Admin: 12/28/18 03:54 Dose: 125 mls/hr Vancomycin HCl 0.75 gm/ Sodium (Chloride) 250 mls @ 166.667 mls/hr IV ONETIME ONE Stop: 12/25/18 21:29 Last Admin: 12/25/18 20:30 Dose: 166.667 mls/hr Vancomycin HCl 0.75 gm/ Sodium (Chloride) 250 mls @ 250 mls/hr IV Q8H [facility] Last Admin: 12/26/18 04:26 Dose: 250 mls/hr Vancomycin HCl 0.75 gm/ Sodium (Chloride) 250 mls @ 250 mls/hr IV Q12H [facility] Last Admin: 12/27/18 17:26 Dose: Not Given Vancomycin HCl 1 gm/ Sodium (Chloride) 250 mls @ 250 mls/hr IV Q8H [facility] Last Admin: 12/28/18 02:12 Dose: Not Given Vancomycin HCl 1 gm/ Sodium (Chloride) 250 mls @ 250 mls/hr IV Q8H [facility] Last Admin: 12/28/18 10:20 Dose: 250 mls/hr Magnesium Sulfate 4 gm/ Premix 100 mls @ 25 mls/hr IV ONETIME ONE Stop: 12/28/18 12:01 Last Admin: 12/28/18 12:31 Dose: 25 mls/hr Vancomycin HCl 1 gm/Vancomycin HCl 500 mg/ Sodium Chloride 500 mls @ 333.333 mls/hr IV Q8H [facility] Last Admin: 12/29/18 01:22 Dose: 333.333 mls/hr Magnesium Sulfate 4 gm/ Premix 100 mls @ 25 mls/hr IV ONETIME ONE Stop: 12/29/18 11:29 Last Admin: 12/29/18 09:00 Dose: 25 mls/hr Vancomycin HCl 1 gm/ Sodium (Chloride) 250 mls @ 250 mls/hr IV Q8H [facility] Influenza Virus Vaccine (Pharmacy To Dose - Influenza Vaccine) 1 each IM ONETIME ONE Stop: 12/25/18 19:54 Influenza Virus Vaccine (Fluzone Quad [id number] Syringe) 60 mcg IM .ONCE ONE Stop: 12/26/18 09:01 Last Admin: 12/26/18 12:54 Dose: Not Given Lorazepam (Ativan) 1 mg IVPUSH ONETIME ONE Stop: 12/25/18 04:44 Last Admin: 12/25/18 04:55 Dose: 1 mg Lorazepam (Ativan) 1 mg IVPUSH ONETIME ONE Stop: 12/25/18 06:47 Last Admin: 12/25/18 06:47 Dose: 1 mg Lorazepam (Ativan) Confirm Administered Dose 2 mg .ROUTE .STK-MED ONE Stop: 12/25/18 06:46 Last Admin: 12/25/18 06:48 Dose: Not Given Lorazepam (Ativan) 1 mg IVPUSH ONETIME ONE Stop: 12/26/18 10:02 Last Admin: 12/26/18 10:09 Dose: 1 mg Methylprednisolone Sodium Succinate (Solu-Medrol) 40 mg IVPUSH Q6H [facility] Last Admin: 12/27/18 08:10 Dose: 40 mg Multivitamins (Thera) 1 each PO ONETIME ONE Stop: 12/26/18 10:40 Last Admin: 12/26/18 12:21 Dose: 1 each Pantoprazole Sodium (Protonix Iv) 40 mg IV DAILY [facility] Last Admin: 12/27/18 08:41 Dose: 40 mg Vancomycin HCl (Pharmacy To Dose - Vancomycin) 1 dose .XX ASDIRECTED RICHARD - Exam Quality Assessment: Denies: Supplemental Oxygen General: Reports: Alert, Oriented HEENT: Reports: Pupils Equal Neck: Reports: Supple Lungs: Reports: Normal Respiratory Effort, Wheezing Cardiovascular: Reports: Regular Rate, Regular Rhythm Skin: Reports: Warm, Dry, Other (Well-healing skin lesions one on her forehead and one on her right jaw.) Wound/Incisions: Reports: Healing Well Psy/Mental Status: Reports: Alert, Normal Affect, Normal Mood
[2018-12-31] MEDS: predniSONE 20 MG Tab PO SCH (06:06)
[2018-12-31] MEDS: Pantoprazole 40 MG Tab.CR PO SCH (06:06)
[2018-12-31 06:07] VITALS: BP 102/79
[2018-12-31] MEDS: ClonazePAM 1 MG Tab PO SCH (07:43)
[2018-12-31] MEDS: Nicotine 21 MG/24 Hr Patch TRDERM SCH (07:44)
[2018-12-31] MEDS: Venlafaxine 75 MG Cap.ER PO SCH (07:46)
[2018-12-31] MEDS: busPIRone 5 MG Tab PO SCH (07:46)
[2018-12-31] MEDS: Enoxaparin 40 MG/0.4 ML Syringe SUBCUT SCH (07:47)
[2018-12-31] MEDS: Remove Patch*NICOTINE TRDERM SCH (08:10)
[2018-12-31] MEDS: Mupirocin Oint 22 GM Tube TOP SCH (08:10)
[2018-12-31] MEDS: Thiamine 100 MG Tab PO SCH (08:11)
== END 2018-12-31 08:07 | DRG 191 ==
LOC: JD.ED 04:35 → EEVIPCON 04:35 → JD.MS 06:48 → OBSVTOIN 11:28 → JD.ICU 12-26 10:48 → JD.MS 12-28 09:47
PROVIDERS: ADMIT Family Medicine; ATTEND Family Medicine
DX: J44.1 Chronic obstructive pulmonary disease with (acute) exacerbation (principal); F15.23 Other stimulant dependence with withdrawal; E88.01 Alpha-1-antitrypsin deficiency; S01.80XA Unspecified open wound of other part of head, initial encounter; F41.9 Anxiety disorder, unspecified; B19.20 Unspecified viral hepatitis C without hepatic coma; M79.7 Fibromyalgia; F90.9 Attention-deficit hyperactivity disorder, unspecified type; F32.9 Major depressive disorder, single episode, unspecified; F17.210 Nicotine dependence, cigarettes, uncomplicated; F12.93 Cannabis use, unspecified with withdrawal; E83.42 Hypomagnesemia; Z23 Encounter for immunization; Z79.899 Other long term (current) drug therapy; Z86.14 Personal history of Methicillin resistant Staphylococcus aureus infection
CPT/HCPCS: 36415; 36600; 71045; 71045-26; 80053; 80202; 80306; 81001; 82550; 82553; 82803; 83735; 83880; 84100; 84484; 84703; 85007; 85025; 85027; 86140; 86803; 87040; 90686; 93005; 93010; 94640; 94761; 94762; 96361; 96365; 96375; 99285; 99285-25; A9270-GY; C9113; G0433; G0480; J1650; J2060; J2550; J2920; J3370; J3475; J7040; J7042; J7050; J7120; J7620-GY

== ENCOUNTER 2019-02-07 16:14 | Emergency (ER) | payer MEDICAID ==
[2019-02-07] MEDS ORDERED: Sodium Chloride 0.9% 10 ML Syringe FLUSH PRN (16:23)
[2019-02-07 16:24] VITALS: BP 171/52
[2019-02-07] MEDS ORDERED: Albuterol/Ipratropium 3.0-0.5 MG/3 ML Neb Soln NEB ONE (16:24)
[2019-02-07] MEDS ORDERED: methylPREDNISolone Sodium Succinate 125 MG/2 ML SDV IVPUSH ONE (16:25)
--- NOTE | 2019-02-07 18:19 | EDM.PDOC ---
ED HPI GENERAL MEDICAL PROBLEM - General Chief Complaint: Respiratory Problem Stated Complaint: NEED OXYGEN/MED CLEARANCE Time Seen by Provider: 02/07/19 16:23 Source of Information: Reports: Patient History Limitations: Reports: No Limitations - History of Present Illness INITIAL COMMENTS - FREE TEXT/NARRATIVE: The patient presents with shortness of breath. She has alpha one antitrypsin deficiency and she is oxygen dependent. She was at the [facility] to get help with addiction issues and she got upset and left this weekend. She left her oxygen there and medications. She has more shortness of breath and came to get medically cleared so she can go back for help. Her oxygen saturations were in the 70s. She improved greatly with oxygen. She denies any fever, chills or cough. She has no chest pain. She has no abdominal pain, nausea or vomiting. Onset: Gradual Duration: Day(s): Severity: Severe Improves with: Reports: None Worsens with: Reports: None Associated Symptoms: Reports: Shortness of Breath. Denies: Chest Pain, Cough, Fever/Chills, Headaches, Nausea/Vomiting - Related Data Allergies Allergy/AdvReac Type Severity Reaction Status Date / Time No Known Allergies Allergy Verified 02/07/19 16:24 Home Meds: Home Meds Budesonide/Formoterol Fumarate [Symbicort 160-4.5 Mcg Inhaler] 2 puff INH BID [History] Albuterol Sulfate [Proair Hfa] 2 puff INH QID PRN 12/25/18 [History] Tiotropium [Spiriva HandiHaler] 1 cap INH DAILY 12/25/18 [History] Venlafaxine HCl [Venlafaxine ER] 75 mg PO DAILY 12/25/18 [History] hydrOXYzine pamoate [Hydroxyzine Pamoate] 50 mg PO Q6H PRN 12/25/18 [History] Albuterol/Ipratropium [DuoNeb 3.0-0.5 MG/3 ML] 3 ml NEB Q6HRRT PRN neb [Rx] Thiamine [Vitamin B-1] 100 mg PO DAILY tablet 12/30/18 [Rx] busPIRone [Buspar] 7.5 mg PO BID 30 Days #60 tab 12/30/18 [Rx] Albuterol/Ipratropium [DuoNeb 3.0-0.5 MG/3 ML] 3 ml NEB Q6HR PRN #25 neb [Rx] Past Medical History - Past Health History Medical/Surgical History: Denies Medical/Surgical History HEENT History: Reports: None Cardiovascular History: Reports: None Respiratory History: Reports: Asthma, COPD, Other (See Below) Other Respiratory History: Emphysema Gastrointestinal History: Reports: None Genitourinary History: Reports: None COLOR COATER History: Reports: None Musculoskeletal History: Reports: Fibromyalgia Neurological History: Reports: Concussion Psychiatric History: Reports: ADHD, Anxiety, Depression Endocrine/Metabolic History: Reports: None Hematologic History: Reports: Other (See Below) Other Hematologic History: Alpha 1 gene deficiency, diagnosed one year ago. Immunologic History: Reports: None Oncologic (Cancer) History: Reports: None Dermatologic History: Reports: None Other Dermatologic History: picks at skin - Infectious Disease History Infectious Disease History: Reports: Chicken Pox, MRSA - Past Surgical History Head Surgeries/Procedures: Reports: None HEENT Surgical History: Reports: Oral Surgery GI Surgical History: Reports: Appendectomy Endocrine Surgical History: Reports: None Neurological Surgical History: Reports: None Musculoskeletal Surgical History: Reports: None Dermatological Surgical History: Reports: None Social & Family History - Family History Family Medical History: Noncontributory Respiratory: Reports: Asthma, COPD Other Respiratory Family Hisory: parents - Tobacco Use Smoking Status *Q: Former Smoker Used Tobacco, but Quit: Yes Month/Year Tobacco Last Used: December 2018 - Caffeine Use Caffeine Use: Reports: Coffee, Soda - Recreational Drug Use Recreational Drug Use: Yes Drug Use in Last 12 Months: Yes Recreational Drug Type: Reports: Amphetamines (Speed), Methamphetamine - Living Situation & Occupation Living situation: Reports: Single Occupation: Unemployed ED ROS GENERAL - Review of Systems Review Of Systems: See Below Constitutional: Reports: No Symptoms HEENT: Reports: No Symptoms Respiratory: Reports: Shortness of Breath. Denies: Cough Cardiovascular: Reports: No Symptoms Endocrine: Reports: No Symptoms GI/Abdominal: Reports: No Symptoms : Reports: No Symptoms ED EXAM, GENERAL - Physical Exam Exam: See Below Exam Limited By: No Limitations General Appearance: Alert, No Apparent Distress Ears: Normal External Exam Nose: Normal Inspection Head: Atraumatic, Normocephalic Neck: Normal Inspection Respiratory/Chest: Respiratory Distress (Mild to moderate), Decreased Breath Sounds, Wheezing Cardiovascular: Regular Rate, Rhythm, No Edema, No Murmur GI/Abdominal: Soft, Non-Tender, No Organomegaly, No Mass Back Exam: Normal Inspection Extremities: Normal Inspection Course - Vital Signs Last Recorded V/S: Last Vital Signs Temp 98.7 F 02/07/19 16:21 Pulse 111 H 02/07/19 16:21 Resp 24 H 02/07/19 16:21 BP 171/52 H 02/07/19 16:21 Pulse Ox 99 02/07/19 16:25 - Orders/Labs/Meds Orders: Active Orders 24 hr Category Date Time Status Cardiac Monitoring [RC] . DIRECTED Care 02/07/19 16:23 Active Oxygen Therapy [RC] PRN Care 02/07/19 16:23 Active Peripheral IV Care [RC] . DIRECTED Care 02/07/19 16:24 Active RT Aerosol Therapy [RC] ASDIRECTED Care 02/07/19 16:25 Active Sodium Chloride 0.9% [Saline Flush] Med 02/07/19 16:23 Active 10 ml FLUSH ASDIRECTED PRN Peripheral IV Insertion Adult [OM.PC] Stat Oth 02/07/19 16:23 Ordered Medication Orders Sodium Chloride (Saline Flush) 10 ml FLUSH ASDIRECTED PRN PRN Reason: Keep Vein Open Last Admin: 02/07/19 16:44 Dose: 10 ml Labs: Laboratory Tests 02/07/19 02/07/19 02/07/19 Range/Units 16:35 16:35 16:45 WBC 10.05 H (3.98-10.04) K/mm3 RBC 5.23 H (3.98-5.22) M/mm3 Hgb 15.8 H D (11.2-15.7) gm/L Hct 46.2 H (34.1-44.9) % MCV 88.3 (79.4-94.8) fl MCH 30.2 (25.6-32.2) pg MCHC 34.2 (32.2-35.5) g/dl RDW Std Deviation 44.1 (36.4-46.3) fL Plt Count 357 (182-369) K/mm3 MPV 8.5 L (9.4-12.3) fl Neut % (Auto) 54.6 (34.0-71.1) % Lymph % (Auto) 35.7 (19.3-51.7) % [place] % (Auto) 8.4 (4.7-12.5) % Eos % (Auto) 0.7 (0.7-5.8) Baso % (Auto) 0.4 (0.1-1.2) % Neut # (Auto) 5.49 (1.56-6.13) K/mm3 Lymph # (Auto) 3.59 (1.18-3.74) K/mm3 [place] # (Auto) 0.84 H (0.24-0.36) K/mm3 Eos # (Auto) 0.07 (0.04-0.36) K/mm3 Baso # (Auto) 0.04 (0.01-0.08) K/mm3 Sodium 138 (136-145) mEq/L Potassium 3.7 (3.5-5.1) mEq/L Chloride 101 (98-107) mEq/L Carbon Dioxide 26 (21-32) mEq/L Anion Gap 14.7 (5-15) BUN 13 (7-18) mg/dL Creatinine 0.6 (0.55-1.02) mg/dL Est Cr Clr Drug Dosing 101.04 mL/min Estimated GFR (MDRD) > 60 (>60) mL/min BUN/Creatinine Ratio 21.7 H (14-18) Glucose 110 H (74-106) mg/dL Calcium 9.1 (8.5-10.1) mg/dL Total Bilirubin 0.3 (0.2-1.0) mg/dL AST 73 H (15-37) U/L ALT 135 H (14-59) U/L Alkaline Phosphatase 95 (46-116) U/L Total Protein 7.9 (6.4-8.2) g/dl Albumin 4.2 (3.4-5.0) g/dl Globulin 3.7 gm/dL Albumin/Globulin Ratio 1.1 (1-2) Urine Opiates Screen Negative (ZUTHGA=603) Ur Buprenorphine Scrn Negative (CUTOFF=10) Ur Oxycodone Screen Negative (IWM7JK=354) Urine Methadone Screen Negative (FIVFUT=196) Ur Propoxyphene Screen Negative (OXFRVW=312) Ur Barbiturates Screen Negative (ESJOGG=830) Ur Tricyclics Screen Negative (MQUHCN=246) Ur Phencyclidine Scrn Negative (CUTOFF=25) Ur Amphetamine Screen Negative (YMXOCO=091) U Methamphetamines Scrn Negative (RLNNBF=746) U Benzodiazepines Scrn Negative (TWUTBN=374) U Cocaine Metab Screen Negative (YHZGUA=605) U Marijuana (THC) Screen Negative (CUTOFF=50) Ethyl Alcohol 0.02 (0.00) gm% Meds: Medications Generic Name Dose Route Start Last Admin Trade Name Freq PRN Reason Stop Dose Admin Sodium Chloride 10 ml 02/07/19 16:23 02/07/19 16:44 Saline Flush FLUSH 10 ml ASDIRECTED PRN Administration Keep Vein Open Discontinued Medications Generic Name Dose Route Start Last Admin Trade Name Freq PRN Reason Stop Dose Admin Albuterol/Ipratropium 3 ml 02/07/19 16:24 02/07/19 17:04 Duoneb 3.0-0.5 Mg/3 Ml NEB 02/07/19 16:25 3 ml ONETIME ONE Administration Methylprednisolone Sodium Succinate 125 mg 02/07/19 16:25 02/07/19 16:44 Solu-Medrol IVPUSH 02/07/19 16:26 125 mg ONETIME ONE Administration - Re-Assessments/Exams Free Text/Narrative Re-Assessment/Exam: 02/07/19 18:17 I ordered oxygen, IV saline lock, duoneb, solu-medrol 125mg IV, labs and urine drug screen. Her WBC was elevated slightly at 10.05. His Hgb was elevated at 15.8. His AST is elevated at 73. His ALT is elevated at 135. Her urine drug screen is negative. Her alcohol is elevated at 0.02. 02/07/19 18:34 I called the [facility] crisis line and they still do have her meds and a bed. I will writ orders for her meds and I have ordered a nebulizer so she can take her duoneb. Departure - Departure Time of Disposition: 18:35 Disposition: Home, Self-Care 01 Condition: Good Clinical Impression: [id number] deficiency, Hypoxia, Methamphetamine abuse - Discharge Information *PRESCRIPTION DRUG MONITORING PROGRAM REVIEWED*: Not Applicable *COPY OF PRESCRIPTION DRUG MONITORING REPORT IN PATIENT SHER: Not Applicable Prescriptions: Albuterol/Ipratropium [DuoNeb 3.0-0.5 MG/3 ML] 3 ml NEB Q6HR PRN #25 neb PRN Reason: Shortness Of Breath Referrals: PCP,None [Primary Care Provider] - Forms: ED Department Discharge Additional Instructions: Take your medications as prescribed. Use your oxygen at all times. A medical screening exam was done and you are medically cleared to go to the [facility]. Please return if you are worse. - My Orders Last 24 Hours: My Active Orders 02/07/19 16:23 Cardiac Monitoring [RC] . DIRECTED Oxygen Therapy [RC] PRN Sodium Chloride 0.9% [Saline Flush] 10 ml FLUSH ASDIRECTED PRN Peripheral IV Insertion Adult [OM.PC] Stat 02/07/19 16:24 Peripheral IV Care [RC] . DIRECTED 02/07/19 16:25 RT Aerosol Therapy [RC] ASDIRECTED - Assessment/Plan Last 24 Hours: My Active Orders 02/07/19 16:23 Cardiac Monitoring [RC] . DIRECTED Oxygen Therapy [RC] PRN Sodium Chloride 0.9% [Saline Flush] 10 ml FLUSH ASDIRECTED PRN Peripheral IV Insertion Adult [OM.PC] Stat 02/07/19 16:24 Peripheral IV Care [RC] . DIRECTED 02/07/19 16:25 RT Aerosol Therapy [RC] ASDIRECTED
== END 2019-02-07 19:10 | disposition home or self-care (01) ==
LOC: JD.ED 16:14
DX: E88.01 Alpha-1-antitrypsin deficiency (principal); R09.02 Hypoxemia; F15.10 Other stimulant abuse, uncomplicated; Z79.899 Other long term (current) drug therapy; J44.9 Chronic obstructive pulmonary disease, unspecified
CPT/HCPCS: 36415; 80053; 80306; 85025; 94640; 96374; 99284; G0480; J2930; J7620-GY